=== PATIENT | male | born 1940 | race Caucasian/White ===

== ENCOUNTER 2020-11-20 15:03 | Inpatient (IN) | payer OTHER ==
[~2020-11-20] VITALS: Ht 170.2 cm; Wt 90.7 kg
--- NOTE | ~2020-11-20 | HC ---
[facility] [place] [address] CONSULTATION Name: EMILY DELVALLE Room #: 212-P [facility] IN .R.#: [id number] Admission: 11/20/20 Attend Phys: He Barahona MD Discharge: Date of : 40 Report #: [id number] THIS REPORT FOR: cc: Rosa Mullins Stefany RNP Al-Absi,Kyler Banegas MD ~ DATE OF SERVICE: 11/22/2020 REASON FOR CONSULTATION: Chronic kidney disease. REASON FOR THE PRESENTATION: Chest pain. HISTORY OF PRESENT ILLNESS: This is an 80-year-old with extensive past medical history including and not limited to, coronary artery disease, hypertension, remote history of cardiac stent back in 1996. He presented to the Emergency Room on 09/22 with left-sided chest pain. He had worsening episodes of chest pain over the last couple of weeks. Those were similar to his previous cardiac pain. He was admitted to be further evaluated for his chest pain. Troponins were mildly elevated on arrival. Cardiac catheterization revealed multivessel disease and potential for the patient need for a CABG procedure. Cardiothoracic surgeon was consulted. The patient's creatinine was elevated on his arrival, mandating a Nephrology consultation. Looking back at the patient's medical records, it does look like that the patient has a creatinine as high as 2.0 back to 2009. He denies any prior knowledge of kidney disease. He denies nonsteroidal anti-inflammatory medication usage. No known personal or family history of cystic kidney disease, nephrolithiasis, glomerulonephritis, connective tissue disorders. PAST MEDICAL AND SURGICAL HISTORY: 1. Coronary artery disease. 2. Hyperlipidemia. 3. Hypertension. 4. Status post angioplasty and coronary stent. 5. Left foot surgery. ALLERGIES: PORK CONTAINING PRODUCTS. MEDICATIONS: 1. Vitamin D. 2. Calcium carbonate. 3. Crestor. 4. Lisinopril. 5. Metoprolol. 6. Aspirin. 7. Nitroglycerin. [facility] [address] [place] [address] CONSULTATION Name: EMILY DELVALLE Room #: 212-P [facility] IN [facility].#: [id number] Admission: 11/20/20 Attend Phys: He Barahona MD Discharge: Date of : 40 Report #: [id number]. Ulysses 3 fish oil. FAMILY HISTORY: Significant for hypertension and diabetes mellitus. SOCIAL HISTORY: He denies drug or alcohol abuse. He is independent. REVIEW OF SYSTEMS: GENERAL: No fever or chills. CARDIOVASCULAR: As per the history of present illness. PULMONARY: No cough or hemoptysis. GASTROINTESTINAL: No nausea or vomiting. GENITOURINARY: No frequency, no urgency. MUSCULOSKELETAL: Occasional myalgias and back pain. NEUROLOGICAL: No headache, no dizziness. PHYSICAL EXAMINATION: VITAL SIGNS: Blood pressure 169/85. HEAD AND NECK: No jugular venous distention, no bruit, no thyromegaly. CHEST: Clear to auscultation bilaterally. CARDIOVASCULAR: Regular with no rub detected. ABDOMEN: Soft, nontender with no hepatosplenomegaly. LOWER EXTREMITIES: No edema. LABORATORY DATA: Reviewed. Sodium 142, potassium is 4.4, chloride 110, BUN 36, creatinine 2.2. Troponin is 0.6. IMPRESSION AND PLAN: 1. Chronic kidney disease dating back to 2009. 2. Coronary artery disease. 3. Hypertension. 4. From the renal perspective, the patient's renal function seems to be at his baseline. I will discontinue lisinopril. 5. Ongoing cardiac evaluations and Cardiothoracic Surgery evaluation. 6. Continue to monitor renal function panel. 7. Continue to monitor daily electrolytes, urine output. 8. Avoid nephrotoxins. 9. We will continue to follow during his hospital stay. Thank you for the consultation. By: [id number] Kyler Bryant MD /nt
--- NOTE | ~2020-11-20 | TEE ---
[address] [address] TRANSESOPHAGEAL ECHOCARDIOGRAM Name: EMILY DELVALLE Room #: 212-P [facility] IN M.R.#: [id number] Admission: 11/20/20 Attend Phys: He Barahona MD Discharge: 11/22/20 Date of : 40 Report #: [id number] THIS REPORT FOR: cc: Rosa Mullins Stefany RNP Lammoglia, Francisco J. MD ~ APPROVED REPORT Study performed: 11/21/2020 08:05:04 EXAM: Comprehensive 2D, Doppler, and color-flow Echocardiogram Patient Location: Bedside Room #: 212 Status: routine BSA: 2.02 HR: 88 bpm BP: 148/78 mmHg Rhythm: NSR Other Information Study Quality: Adequate Indications Non STEMI CAD Chest Pain Hypertension/HDD Volumes Left Atrial Volume (Systole) LA ESV Index: 32.00 mL/m2 Left Ventricle The left ventricle is normal size. There is normal LV segmental wall motion. There is normal left ventricular wall thickness. The left ventricular systolic function is normal. The left ventricular ejection fraction is within the normal range. LVEF is 50-55%. The left ventricular diastolic function is abnormal. Right Ventricle The right ventricle is normal size. The right ventricular systolic function is normal. Atria [address] [address] TRANSESOPHAGEAL ECHOCARDIOGRAM Name: EMILY DELVALLE Room #: 212-P [facility] IN M.R.#: [id number] Admission: 11/20/20 Attend Phys: He Barahona MD Discharge: 11/22/20 Date of : 40 Report #: [id number] The left atrium size is normal. The right atrium size is normal. Aortic Valve The aortic valve is normal in structure. Aortic valve is calcified. No aortic regurgitation is present. There is no aortic valvular stenosis. Mitral Valve The mitral valve is normal in structure. Mild mitral regurgitation. No evidence of mitral valve stenosis. Tricuspid Valve The tricuspid valve is normal in structure. There is no tricuspid valve regurgitation noted. Pulmonic Valve The pulmonary valve is normal in structure. There is no pulmonic valvular regurgitation. Great Vessels The aortic root is normal in size. IVC is not well visualized. Pericardium There is no pericardial effusion. <Conclusion> The left ventricle is normal size. LVEF is 50-55%. The aortic valve is normal in structure. Aortic valve is calcified. No aortic regurgitation is present. There is no aortic valvular stenosis. The mitral valve is normal in structure. Mild mitral regurgitation. The tricuspid valve is normal in structure. The pulmonary valve is normal in structure. There is no pericardial effusion. The aortic root is normal in size. By: 0911 0 Almas Rodriguez MD /INF
--- NOTE | 2020-11-20 12:30 | NUR ---
daughter present this am, updated on all cares as provided. remained npo for cardiac cath. tylenol given for r sided discomfort- pt had fall about one week ago prior to hospital admission. report received from director of labor and delivery RN. returned from director of labor and delivery. r groin dressing dry/intact, no bleeding, bruising or hematoma, pedal pulses 1+. daughter remains present in room.
[~2020-11-20 15:03] MED LIST: ASPIRIN PO; ASPIRIN325 PO; ATENOLOL; CALCIUM 500 +1 EAC4 PO; CATAPRES0.2 MG PO; CRESTOR40 MG PO; EFFIENT10 MG PO; FISH OIL 1,001000 M1 PO; HCTZ PO; LISINOPRIL10 MG PO; NITROGLYCERIN0.4 MG SL; NORCO 5-325 TA1 EACH PO; PRINIVIL40 MG PO; TOPROL XL100 MG PO; TOPROL XL50 MG PO; VITAMIN D1000 UNI1 PO; ZOCOR
[2020-11-20 15:09] VITALS: BP 186/119
[2020-11-20 16:21] LABS: ABSOLUTE NEUTROPHILS 6.3 thou/uL (1.4-8.2); BASOPHILS 0.8 % (0.0-2.0); EOSINOPHILS 3.8 % (0.0-3.0); HEMATOCRIT 44.9 % (42.0-52.0); HEMOGLOBIN 15.1 gm/dL (14.0-18.0); LYMPHOCYTES 18.6 % (24.0-44.0); MCH 28.2 pg (26.0-34.0); MCHC 33.6 g/dL (28.0-37.0); MCV 83.9 fL (80.0-100.0); MONOCYTES 5.9 % (1.0-8.0); PLATELET COUNT 282 thou/uL (150-400); POLYS 70.9 % (36.0-66.0); RBC 5.36 mil/uL (4.50-6.00); RDW 14.7 % (10.5-14.5); WBC 8.9 thou/uL (4.0-11.0)
[2020-11-20 16:24] LABS: CALCIUM 8.9 mg/dL (8.5-10.1); CREATININE 2.3 mg/dL (0.7-1.3)
[2020-11-20 16:34] LABS: ALBUMIN 3.6 g/dL (3.4-5.0); DIRECT BILIRUBIN 0.1 mg/dL (<0.1-0.2); TOTAL BILIRUBIN 0.7 mg/dL (0.2-1.0); TOTAL PROTEIN 7.8 g/dL (6.4-8.2)
[2020-11-20 16:39] LABS: TROPONIN-I 0.98 ng/mL (<0.06)
--- NOTE | 2020-11-20 17:38 | NUR ---
PT STATES HE DOSEN'T CONSUME PORK AND SEAFOOD PRODUCTS BUT HAS NO ALLERGIES TO THEM.
[2020-11-20 18:12] LABS: PROTIME 10.8 Seconds (9.3-11.4)
[2020-11-20 18:23] VITALS: BP 152/84
[2020-11-20 19:00] VITALS: BP 158/79
[2020-11-20 19:55] VITALS: BP 159/99
[2020-11-20 22:50] LABS: ANION GAP 12 mmol/L (7-16); BUN 36 mg/dL (7-18); CALCIUM 8.5 mg/dL (8.5-10.1); CHLORIDE 108 mmol/L (98-107); CHOLESTEROL 217 mg/dL (<200); CO2 22 mmol/L (21-32); CREATININE 2.5 mg/dL (0.7-1.3); GLUCOSE 132 mg/dL (74-106); HDL CHOLESTEROL 36 mg/dL (>40); LDL CHOLESTEROL 146 mg/dL (<100); POTASSIUM 3.9 mmol/L (3.5-5.1); SERUM ASSESSMENT Clear; SODIUM 142 mmol/L (136-145); TRIGLYCERIDE 175 mg/dL (<150); VLDL 35 mg/dL (<40)
[2020-11-21] VITALS (13 sets, daily range): BP systolic 145–181; BP diastolic 78–111
--- NOTE | 2020-11-21 06:20 | NUR ---
1939 patient arrived via cart from ER. Caridac monitor placed. Patient awake, alert, oriented. Daughter had followed the nurse up from ER and had to be told that she was not allowed to come on the unit as visiting hours were over. She was very tearful and dramatic but in the end, she did leave. She called 3 times before midnight to check on her father. Reminded her about visiting hours 9 am to 7 pm. Patient was up most of the night, unable to sleep. Heart rate and rhythm stable in the 90's. Blood pressure elevated at midnight check. Call placed to night RETREAD OPERATORAura. Orders received for hydralazine 10 mg. Pressure down, post check. Patient has been NPO since midinight. Consent signed and in chart. Patient up to bedside commode with assist x1 to void. Patient has difficulty with getting around. States he has a "bad" shoulder, knee, and hip from a recent fall. Denies pain. Heparin continues per protocol. See documemtation on interventions for assessment details.
--- NOTE | 2020-11-21 06:55 | EKG ---
[address] [place] [address] ELECTROCARDIOGRAM REPORT Name: MOOKEMILY Room #: 212-P [facility] IN .R.#: [id number] Admission: 11/20/20 Attend Phys: He Barahona MD Discharge: Date of : 40 Report #: [id number] [facility] ED Test Date: 2020-11-20 Test Time: 15:11:46 Pat Name: EMILY DELVALLE Department: Room: [facility] Gender: M Clinical Data Research: GIL : 1940 Requested By: Trina Hampton Order Number: [id number] MD: Michi Chavez Measurements Intervals [place] Rate: 99 P: -17 DE: 176 QRS: -57 QRSD: 111 T: 84 QT: 361 QTc: 464 Interpretive Statements Sinus rhythm Probable left atrial enlargement Left anterior fascicular block Left ventricular hypertrophy Anterior infarct, old Compared to ECG 11/24/2014 07:00:24 Left ventricular hypertrophy now present Sinus tachycardia no longer present Poor R-wave progression no longer present Myocardial infarct finding still present Electronically Signed On 11-21-2020 6:55:43 [employer] PROJECT MANAGER by Michi Chavez [email or web address] <ELECTRONICALLY SIGNED> By: Michi Chavez MD, [facility] 11/21/20 0655 10 10 Michi Chavez MD, [facility] /EPI
[2020-11-21 07:42] LABS: HEMATOCRIT 43.2 % (42.0-52.0); HEMOGLOBIN 14.5 gm/dL (14.0-18.0); MCH 28.2 pg (26.0-34.0); MCHC 33.5 g/dL (28.0-37.0); RBC 5.14 mil/uL (4.50-6.00); WBC 7.9 thou/uL (4.0-11.0)
[2020-11-21 08:00] LABS: CALCIUM 8.6 mg/dL (8.5-10.1); CREATININE 2.3 mg/dL (0.7-1.3); POTASSIUM 4.1 mmol/L (3.5-5.1)
[2020-11-21 08:07] LABS: TROPONIN-I 0.66 ng/mL (<0.06)
--- NOTE | 2020-11-21 09:24 | NUR ---
echo completed. pt states that when blinds were opened the sun was in his eyes for 45 minutes. very irritable, stating he is having r sided shoulder and knee pain. tylenol po given with pain /. daughter present, updated on all cares. distillery laborer enroute for transport to distillery laborer.
--- NOTE | 2020-11-21 09:35 | NUR ---
to laborer cement gun placing per bed with laborer cement gun placing rn.
--- NOTE | 2020-11-21 10:04 | NUR ---
ASSESSMENT: cm reviewed CHART. PT IS OUT OF THE ROOM FOR TEST BUT HIS DAUGHTER ADDIS IS PRESENT. PT WAS ADMITTED DUE TO CHEST PAIN/NSTEMI. PT HAD ELEVATED BLOOD PRESSURE AND WAS ALSO STARTED ON A HEPARIN GTT. PT LIVES IN A HOUSE ALONE. PT HAS ABOUT 1 STEP TO ENTER THE HOME AND HIS NEEDS ARE ON THE MAIN LEVEL EXCEPT FOR LAUNDRY IN THE BASEMENT. DAUGHTER REPORTS THERE IS A FULL FLIGHT WITH HANDRAILS TO THE BASEMENT BUT STATES SHE HAS BEEN DOING HIS LAUNDRY LATELY. PT IS NORMALLY VERY INDEPENDENT WITH ADLS AND AMBULATION BUT DAUGHTER REPORTS HE HAS RECENTLY BEEN USING A CANE. PT HAS NOT HAD HH OR BEEN TO SNF. DAUGHTER REPORTS PT USED TO SEE DR. BAIG FOR CARDIOLOGY BUT REPORTS ONCE HE LEFT THE GROUP HE STOPPED SEEING ANYONE AND TAKING MEDICATIONS. PT DOES NOT CURRENTLY HAVE A PCP BUT DAUGHTER REPORTS SHE TOOK HIM TO SEE HER NURSE PRACTIONER THAT SHE SEES ELZBIETA ROGERS. CM ALSO PROVIDED DAUGHTER WITH [facility] PCP LIST IF NEEDED. CM ALSO INSTRUCTED HER SHE CAN CONTACT PATIENTS INSURANCE TO SEE WHO IS IN NETWORK. PLANS ARE FOR PATIENT TO HAVE CARDIAC CATH. CM WILL CONTINUE TO FOLLOW TO ASSIST NEEDED.
--- NOTE | 2020-11-21 12:30 | NUR ---
returned from chemical laboratory scientist.
--- NOTE | 2020-11-22 03:23 | NUR ---
ASSESSMENT: PT REMAIN ALERT AND ORIENT TIMES THREE. UP TO BSC WITH SBA, GAIT STEADY. DENIES PAIN, SOB AND N/V. SR PER MONITOR. RA, CL/DIMINISHED LUNG SOUNDS. DENY SHOULDER/KNEE PAIN CURRENTLY. DAUGHTER Helio CALLED THIS RN WITH LOTS OF QUESTIONS IN REGARDS TO THE PLAN FOR THIS PT. HELIO WAS VERY EMOTIONAL, CRYING, ANXIOUS AND FEELING GUILTY FOR "DAD" BEING HOSPITALIZED AND HAVING TO MAKE DECISIONS ALONE. LOTS OF REASSURANCE AND ENCOURAGEMENT GIVEN TO HELIO. SUGGESTED THAT SHE TRY AND GET A GOOD NIGHTS REST FOR TONIGHT. PT WAS INFORMED THAT THIS RN HAS SPOKEN WITH HIS DAUGHTER AND HE WAS PLEASED WITH THIS RN BEING SO "KIND" AND UNDERSTANDING OF HIS SITUATION. PT REQUEST THAT HE IS GIVEN THE OPPORTUNITY TO GET SOME SLEEP TONIGHT, SAYING THAT HE DID NOT GET MUCH SLEEP AT ALL LAST NIGHT. RIGHT GROIN SITE INTACT, NO HEMATOMA, OOZING NOR BRUISING NOTED. SLOW PROGRESS FOR DC. WILL CONTINUE TO MONITOR.
[2020-11-22 04:09] LABS: HEMATOCRIT 40.4 % (42.0-52.0); HEMOGLOBIN 13.2 gm/dL (14.0-18.0); MCH 27.6 pg (26.0-34.0); MCHC 32.7 g/dL (28.0-37.0); MCV 84.4 fL (80.0-100.0); RBC 4.79 mil/uL (4.50-6.00); WBC 8.6 thou/uL (4.0-11.0)
[2020-11-22 04:35] VITALS: BP 169/85
[2020-11-22 05:00] LABS: CALCIUM 8.2 mg/dL (8.5-10.1); CREATININE 2.2 mg/dL (0.7-1.3); POTASSIUM 4.4 mmol/L (3.5-5.1)
[2020-11-22 07:20] VITALS: BP 160/100
[2020-11-22 11:20] VITALS: BP 165/113
[2020-11-22 12:27] VITALS: BP 165/113
[2020-11-22] MEDS ORDERED: BAYER CHEWABLE81 MG PO (12:50)
[2020-11-22] MEDS ORDERED: LIPITOR40 MG PO (12:50)
[2020-11-22] MEDS ORDERED: METOPROLOL SUCC25 M1 PO (12:50)
[2020-11-22] MEDS ORDERED: CLOPIDOGREL75 MG PO (12:50)
[2020-11-22 13:17] VITALS: BP 165/113
[2020-11-22 13:26] VITALS: BP 165/113
--- NOTE | 2020-11-22 13:26 | NUR ---
Case discussed with the care team. Pt declined heart surgery or procedure in laborer landscape. No other intervention planned. Dc today with HH for home safety evals and cardio pulmonary assessment. Dtr Ijeoma on her way to pick the pt up and take him home. Hh referral discussed with the pt at bedside and he is agreeable. He has not had HH before and denies having any preference. He is anxious to go home this afternoon and awaiting his dtr's arrival. Dc production control planner faxed referral and orders to [facility] and they can accept. No dme indicated as pt has a cane at home if needed.
--- NOTE | 2020-11-22 13:39 | NUR ---
ASSESSMENT CHARTED. PT ALERT AND ORIENTED WITH FORGETFULNESS. DENIED HAVING CHEST PAIN OR DISCOMFORT. SEEN BY DR. NIETO. ORDERS GIVEN TO DISCHARGE PT TO HOME WITH HH. DISCHARGE INSTRUCTIONS GIVEN TO PT AND THE DAUGHTER. THEY BOTH VERBERLISED UNDERSTANDING. PT LEFT THE FACILITY ACCOMPANIED BY THE DAUGHTER.
--- NOTE | 2020-11-23 11:09 | HC ---
[facility] [place] [address] CONSULTATION Name: EMILY DELVALLE Room #: 212-P [facility] IN .R.#: [id number] Admission: 11/20/20 Attend Phys: He Barahona MD Discharge: 11/22/20 Date of : 40 Report #: [id number] THIS REPORT FOR: cc: Rosa Mullins Stefany RNP Forman, John M. MD ~ DATE OF SERVICE: 11/21/2020 We were asked by Dr. Rodriguez to see the patient. HISTORY OF PRESENT ILLNESS: The patient is an 80-year-old with coronary artery disease. The patient presented to the Emergency Department on 11/20/2000. The patient has a history of chest pain. The [facility]. At that care center, blood pressure was found to be 190/20. EKG was abnormal and the family was referred to the Emergency Department. Fall occurred approximately 9 days before admission and the patient sustained injuries to right knee and right shoulder. The patient also has a history of chest pain at rest, approximately 2 weeks ago that required aspirin and nitro. This happened at rest. There is no history of exertional discomfort. We note the patient is essentially homebound during the COVID crisis. Previous history includes coronary stents in 2014 and 2010. PAST MEDICAL HISTORY: Significant for myocardial infarct in 1996, elevated cholesterol, hypertension, and left foot surgery. MEDICATIONS AT HOME: Vitamin D, Crestor, calcium, Effient, lisinopril, metoprolol, aspirin, nitroglycerin, and omega 3 fatty acids. ALLERGIES: No known drug allergies. Claims to be ALLERGIC TO PORK AND PORCINE CONTAINING PRODUCTS AND SEAFOOD. SOCIAL HISTORY: Positive for cigarette use in the past. The patient lives alone on [address] [place]. REVIEW OF SYSTEMS: CONSTITUTIONAL: Denies fever or chills. EYES: Denies vision change. HEENT: Denies hearing changes, sinus problems, headache. RESPIRATORY: Denies cough, shortness of breath, hemoptysis. CARDIAC: As mentioned, angina at rest. [facility] [address] [place] [address] CONSULTATION Name: EMILY DELVALLE Room #: 212-P [facility] IN [facility].#: [id number] Admission: 11/20/20 Attend Phys: He Barahona MD Discharge: 11/22/20 Date of : 40 Report #: [id number] GASTROINTESTINAL: Denies nausea, vomiting, abdominal pain. GENITOURINARY: Denies burning, frequency, urgency. MUSCULOSKELETAL: Injuries sustained during recent fall. Otherwise, no specific joint or muscle pain. SKIN: Denies rash or infection. NEUROLOGIC: Denies motor or sensory dysfunction. ENDOCRINE: Denies goiter tremor. HEMATOLOGIC: Denies bruisability or bleeding. PHYSICAL EXAMINATION: GENERAL: The patient is lying in bed, initially when I saw the patient, he was somnolent post-angioplasty, but later he was much more awake. VITAL SIGNS: Temperature 36.7, heart rate 87, blood pressure 147/98, respiratory rate 18, pulse ox 97 on room air. HEENT: No scleral icterus. I see no arcus. NECK: No mass. I hear no bruit. CHEST: Clear to auscultation anteriorly. HEART: Rhythm regular, no murmur. ABDOMEN: Protuberant, but soft. EXTREMITIES: No clubbing or cyanosis. Trace edema bilaterally, 2+ popliteal pulses bilaterally. SKIN: I see no rash or infection. NEUROLOGIC: No obvious motor or sensory dysfunction. PSYCHIATRIC: Once awake from the medication, is alert, oriented and appropriate and shows insight into problem. ASSESSMENT: I reviewed the cardiac catheterization today. There is a high-grade LAD lesion. There was also a large diagonal that was stented previously. This has a very mild in-stent stenosis. Circumflex is essentially normal and right coronary has trivial disease considering the patient's age. I have reviewed risks and details of coronary artery bypass surgery and compared and contrasted with angioplasty. The patient is not currently ambulatory and if technically feasible, I would recommend angioplasty and stent placement for the LAD. If this was not feasible and the patient understands the risks involved in surgery would be appropriate. The patient was found to have elevated creatinine and we note that a renal consult has been obtained. I have discussed the case with Dr. Debby Rodriguez and with the family. We remain available for surgery if that is the ultimate decision, but certainly angioplasty would be a reasonable approach if thought to be technically feasible. [address] [address] CONSULTATION Name: MOOKEMILY E Room #: 212-P [facility] IN ..#: [id number] Admission: 11/20/20 Attend Phys: He Barahona MD Discharge: 11/22/20 Date of : 40 Report #: [id number] Thank you for the consult. <ELECTRONICALLY SIGNED> By: Dmitry Griffith MD 11/23/20 1109 1533 1755 Dmitry Griffith MD /nt
--- NOTE | 2020-11-26 14:22 | 2DMMODE ---
[facility] [place] [address] 2 D/M-MODE ECHOCARDIOGRAM Name: EMILY DELVALLE Room #: 212-P [facility] IN ..#: [id number] Admission: 11/20/20 Attend Phys: He Barahona MD Discharge: 11/22/20 Date of : 40 Report #: [id number] THIS REPORT FOR: cc: Rosa Mullins Stefany RNP Lammoglia, Francisco J. MD Lammoglia, Francisco J. MD ~ Sex/Age : M/80Y Height/Weight : 170.2cm/90.7kg Patient Name : EMILY DELVALLE Study Date : 2020-11-21 BSA : 2.02? Requesting Name : ECHO STANDARD W/O CONTRAST Date of : 1940 Request Doctor : DAISY RODRIGUEZ Department : CARD --< Approved Report > Study performed: 11/21/2020 08:05:04 EXAM: Comprehensive 2D, Doppler, and color-flow Echocardiogram Patient Location: Bedside Room #: 212 Status: routine BSA: 2.02 HR: 88 bpm BP: 148/78 mmHg Rhythm: NSR Other Information Study Quality: Adequate Indications Non STEMI CAD Chest Pain Hypertension/HDD Volumes Left Atrial Volume (Systole) LA ESV Index: 32.00 mL/m2 Left Ventricle The left ventricle is normal size. There is normal LV segmental wall motion. There is normal left ventricular wall thickness. The left ventricular systolic [facility] [address] [place] [address] 2 D/M-MODE ECHOCARDIOGRAM Name: EMILY DELVALLE Room #: 212-P [facility] IN ..#: [id number] Admission: 11/20/20 Attend Phys: He Barahona MD Discharge: 11/22/20 Date of : 40 Report #: [id number] function is normal. The left ventricular ejection fraction is within the normal range. LVEF is 50-55%. The left ventricular diastolic function is abnormal. Right Ventricle The right ventricle is normal size. The right ventricular systolic function is normal. Atria The left atrium size is normal. The right atrium size is normal. Aortic Valve The aortic valve is normal in structure. Aortic valve is calcified. No aortic regurgitation is present. There is no aortic valvular stenosis. Mitral Valve The mitral valve is normal in structure. Mild mitral regurgitation. No evidence of mitral valve stenosis. Tricuspid Valve The tricuspid valve is normal in structure. There is no tricuspid valve regurgitation noted. Pulmonic Valve The pulmonary valve is normal in structure. There is no pulmonic valvular regurgitation. Great Vessels The aortic root is normal in size. IVC is not well visualized. Pericardium There is no pericardial effusion. <Conclusion> The left ventricle is normal size. LVEF is 50-55%. The aortic valve is normal in structure. Aortic valve is calcified. No aortic regurgitation is present. There is no aortic valvular stenosis. The mitral valve is normal in structure. Mild mitral regurgitation. The tricuspid valve is normal in structure. The pulmonary valve is normal in structure. There is no pericardial effusion. The aortic root is normal in size. [facility] [address] [place] [address] 2 D/M-MODE ECHOCARDIOGRAM Name: EMILY DELVALLE Room #: 212-P [facility]#: [id number] Admission: 11/20/20 Attend Phys: He Barahona MD Discharge: 11/22/20 Date of : 40 Report #: [id number] Electronically Approved : 11/26/2020 14:19:28 By: [id number] 1421 Daisy Rodriguez MD /RAY
--- NOTE | 2020-11-28 23:40 | CATHLAB ---
[facility] [place] [address] INVASIVE PROCEDURE REPORT Name: EMILY DELVALLE Kristin Room #: 212-P [facility] IN .R.#: [id number] Admission: 11/20/20 Attend Phys: He Barahona MD Discharge: 11/22/20 Date of : 40 Report #: [id number] THIS REPORT FOR: cc: Rosa Mullins Stefany RNP Lammoglia, Francisco J. MD ~ APPROVED REPORT Study performed: 11/21/2020 07:31:28 Patient Details Patient Status: In-Patient Room #: The patient is a 80 year-old male Event Personnel Almas Rodriguez Teacher Of Family And Consumer Science, Elizabeth Burger RN RN, Spring Rodriguez RTR Scrub, Danyell Conrad RTR Monitor Procedures Performed Art Access - R femoral artery* Left Heart Cath w/or w/o Coronaries [id number] [facility] Hemostasis w/ Mynx , 60069 Initial Mod Sed Same Phys/QHP Gr5y 124839 30173 Mod Sed Same Phys/QHP Ea 585006, supervision of conscious sedation Indication Non-STEMI (>12 hrs to = 24 hrs), Chest pain Risk Factors Hypercholesterolemia, Coronary Artery DiseaseHypertension Procedure Narrative The Right Groin^ was infiltrated with 1% Lidocaine subcutaneous anesthesia. A PINNACLE 6FR Sheath #[id number] sheath was inserted into the RFA^. Coronary angiography was performed using coronary diagnostic catheters. The right coronary system was accessed and visualized with a JR4 catheter. The left coronary system was accessed and visualized with a JL4 catheter. The left ventricle was accessed and visualized with a PIGTAIL catheter. Closure device was deployed with a Fr MYNXGRIP 6/7F #[id number]. The patient tolerated the procedure well and there were no complications associated with the procedure. There was no hematoma. Intraoperative Conscious Sedation [address] [address] INVASIVE PROCEDURE REPORT Name: EMILY DELVALLE Room #: 212-P [facility] IN ..#: [id number] Admission: 11/20/20 Attend Phys: He Barahona MD Discharge: 11/22/20 Date of : 40 Report #: [id number] Sedation start time: 11:03 Case end Time: 11:49 Versed 3 mg Fluoro Time: 9.20 minutes Dose: DAP 03140.90 cGycm2 2697 mGy Contrast Type and Amount: Visipaque 165 ml Coronary Angiography The patient's coronary anatomy is right dominant. Diagnostic Cath Left Main moderate caliber vessel of normal origin bifurcates into left anterior descending and left circumflex arteries. there is evidence of mild luminal plaqueing and epicardial calcification. LAD small caliner type II vessel with significant proximal irregularities. diagonal 1 arises early which was previously stented and has mild irregularities. the lad proper then gives rise to septal 1 and continues in the anterior interventricular groove a short distance at which point abrupt bend/tortuousity is present. at this point the lad has a high fgrade 90+% lesion afterwhich the vessel continues to the apex rapidly tapering as it reaches the apex. Diagonal 1 small caliber previously stented vessel appear larger than lad proper. the d1 has luminal irregularities of less than 30% as it courses along the anterolateral wall. Circumflex moderate caliber nondominant artery which gives rise to a small early branch followed by an eccentric lesion that appears to be at least 60% to 70%. beyond this lesion the circumflex gives rise to a bifurcating moderate caliber marginal as it courses posteriorly and terminating in the posterior aspect of the heart as two small caliber vessels. OM1 small insignificant caliber OM2 moderate caliber bifurcating with a moderate superior branch coursing towards the lateral and apical aspects of the heart free of high grade disease. the inferior branch is smaller in diameter with luminal irregularities. OM3 small insignificant caliber Right Coronary moderate caliber dominant vessel of normal origin with moderate plaqueing through its course R PDA small to moderate caliber free of high grade lesions Left Ventriculography Left Ventriculography was not performed. [facility] [address] [address] INVASIVE PROCEDURE REPORT Name: EMILY DELVALLE Room #: 212-P [facility] IN ..#: [id number] Admission: 11/20/20 Attend Phys: He Barahona MD Discharge: 11/22/20 Date of : 40 Report #: [id number] Hemodynamics The aortic pressure is 172/100 mmHg with a mean of 100 mmHg. The left ventricular pressure is 172/19 mmHg with a mean of mmHg. The left ventricular end diastolic pressure is 44 mmHg. Conclusion 1. coronary artery disease severe two vessel consisting of complex high grade proximal lad and at least moderate proximal left circumflex 2. abnormal hemodynamics with elevated lvedp Recommendations CABG in view of smaller caliber calcified long lad with two significant tortousity, risk of pci increased and likelihood of intermission coordinator patency better with reyes svg. will obtain surgical opinion as to likelihood of technical success <ELECTRONICALLY SIGNED> By: Almas Rodriguez MD 11/28/202338 38 38 Almas Rodriguez MD /INF
== END 2020-11-22 13:49 | disposition home health service (06) | DRG 280 ==
LOC: ER 15:03 → EROBS 17:41 → 2N 17:41
PROVIDERS: Emergency Medicine; Internal Medicine; ADMIT Hospitalist; ATTEND Hospitalist
PROC: B211YZZ Fluoroscopy of Multiple Coronary Arteries using Other Contrast (ICD-10-PCS; principal; 2020-11-21)
PROC: 4A023N7 Measurement of Cardiac Sampling and Pressure, Left Heart, Percutaneous Approach (ICD-10-PCS; principal; 2020-11-21)
DX: I21.4 Non-ST elevation (NSTEMI) myocardial infarction (principal); N17.0 Acute kidney failure with tubular necrosis; N18.4 Chronic kidney disease, stage 4 (severe); I16.0 Hypertensive urgency; I25.110 Atherosclerotic heart disease of native coronary artery with unstable angina pectoris; E78.00 Pure hypercholesterolemia, unspecified; M19.90 Unspecified osteoarthritis, unspecified site; E78.5 Hyperlipidemia, unspecified; Z20.822 Contact with and (suspected) exposure to COVID-19; R53.81 Other malaise; M25.551 Pain in right hip; I12.9 Hypertensive chronic kidney disease with stage 1 through stage 4 chronic kidney disease, or unspecified chronic kidney disease; I25.2 Old myocardial infarction; Z88.8 Allergy status to other drugs, medicaments and biological substances; Z91.013 Allergy to seafood; Z87.891 Personal history of nicotine dependence; Z95.5 Presence of coronary angioplasty implant and graft; Z82.49 Family history of ischemic heart disease and other diseases of the circulatory system; Z83.3 Family history of diabetes mellitus; Z79.82 Long term (current) use of aspirin; Z79.899 Other long term (current) drug therapy
CPT/HCPCS: 10081

== ENCOUNTER 2021-02-21 19:14 | Inpatient (IN) | payer OTHER ==
[2021-02-21] VITALS (8 sets, daily range): BP systolic 116–169; BP diastolic 74–104
[~2021-02-21] VITALS: Ht 177.8 cm; Wt 94.1 kg
--- NOTE | ~2021-02-21 | HC ---
[facility] [place] [address] CONSULTATION Name: EMILY DELVALLE Room #: 246-P ADM IN M.R.#: [id number] Admission: 02/21/21 Attend Phys: Ervin Costa MD Discharge: Date of : 40 Report #: [id number] THIS REPORT FOR: cc: Rosa Mullins Stefany RNP Al-Absi, Ahmed I. MD ~ DOC #: [id number] Kyler Bryant MD DATE OF SERVICE: 02/21/2021 REASON FOR CONSULTATION: Elevated creatinine. REASON FOR THE PRESENTATION: Brought by his family members after being found down. HISTORY OF PRESENT ILLNESS: This is obtained from the medical chart, this is a patient who is known to have extensive past medical history including and not limited to, coronary artery disease, hypertension. We evaluated him back in November for chronic kidney disease. His baseline creatinine seems to be around 2.0. He was brought by his daughter after being found down. Duration of the event is not really known. The patient is very confused and not able to provide me with any history. He is maintained on blood pressure medications as I stated. His creatinine when I evaluated him back in November was in the 2 range. The patient's creatinine on arrival to the Emergency Room yesterday was 6.2. His CPK was significantly elevated at 14,962. He has had some electrolyte issues. All of those were addressed with the Emergency Room yesterday. The patient was admitted to further evaluate and I was consulted to manage his acute kidney injury. PAST MEDICAL HISTORY: 1. Coronary artery disease. 2. Hypertension. 3. Chronic kidney disease. 4. Hyperlipidemia. 5. Left foot surgery. SOCIAL HISTORY: He lives alone. No known drug or alcohol abuse as previously reported in the medical records. ALLERGIES: PORK CONTAINING PRODUCTS. REVIEW OF SYSTEMS: Unobtainable given the patient's current mental status. MEDICATIONS: 1. Plavix. 2. Atorvastatin. [address] [address] CONSULTATION Name: MOOKEMILY E Room #: 246-P [facility] IN [facility].#: [id number] Admission: 02/21/21 Attend Phys: Ervin Costa MD Discharge: Date of : 40 Report #: [id number] 3. Metoprolol. 4. Aspirin. PHYSICAL EXAMINATION: GENERAL: He is alert, awake, but disoriented. VITAL SIGNS: Temperature is 37.2, pulse rate is 103, blood pressure is 152/96. NECK: No jugular venous distention. CHEST: No crackles. CARDIOVASCULAR: No rub detected. ABDOMEN: Soft, nontender. EXTREMITIES: Lower extremities, no edema. LABORATORY DATA: White blood cell count from yesterday was 25.7 and down to 20,000; hemoglobin was 19.6. Sodium yesterday was 163, potassium was 4.8, chloride was 123, BUN was 64, creatinine was 6.2. Troponin was 4.4, AST was 354. Labs from today revealed a sodium of 159, potassium of 5.2, BUN of 65, creatinine of 5.5, troponin of 9.4. ASSESSMENT: 1. Acute kidney injury with rhabdomyolysis. 2. Hypernatremia. 3. Metabolic acidosis. 4. Elevated troponins. 5. Elevated liver enzymes. PLAN: 1. The constellation of symptoms are all consistent with rhabdomyolysis. The patient's creatinine, sodium seem to be improving with the current measures. Continue with the D5 quarter normal saline, increase the rate of IV fluid. 2. Continue to monitor daily electrolytes. 3. Continue to monitor urine output. 4. I expect his kidney function to continue to improve and his numbers to get back to his usual baseline of around 2. Kyler Bryant MD AIA/RUSTY By: 0535 1900 Kyler Bryant MD /nt
[~2021-02-21 19:14] MED LIST changes: +BAYER CHEWABLE81 MG PO; +CLOPIDOGREL75 MG PO; +LIPITOR40 MG PO; +METOPROLOL SUCC25 M1 PO
--- NOTE | 2021-02-21 19:19 | NUR ---
DAUGHTER REPORTS SHE CHECKS ON HIM EVERY WEDNESDAY
[2021-02-21 19:37] LABS: HEMOGLOBIN 19.6 gm/dL (14.0-18.0); MCHC 32.3 g/dL (28.0-37.0); MCV 86.7 fL (80.0-100.0); PLATELET COUNT 379 thou/uL (150-400); RDW 16.1 % (10.5-14.5); WBC 25.7 thou/uL (4.0-11.0)
[2021-02-21 19:40] LABS: HEMATOCRIT 60.7 % (42.0-52.0)
[2021-02-21 19:58] LABS: APTT 27.4 Seconds (24.5-32.8); INR 1.1; PROTIME 11.9 Seconds (10.5-12.1)
[2021-02-21 19:58] LABS: URINE BLOOD 3+ (Negative); URINE COLOR YELLOW; URINE GLUCOSE-RANDOM* NEGATIVE (Negative); URINE KETONES TRACE (Negative); URINE LEUKOCYTES-REFLEX NEGATIVE (Negative); URINE NITRITE-REFLEX NEGATIVE (Negative); URINE PROTEIN (DIPSTICK) 3+ (Negative); URINE SPECIFIC GRAVITY 1.025 (1.005-1.035); URINE UROBILINOGEN 0.2 E.U./dl (0.2-1.0)
[2021-02-21 19:59] LABS: URINE CLARITY HAZY
[2021-02-21 20:00] LABS: ICTOTEST (BILI CONFIRMATORY) Negative (Negative); URINE BILIRUBIN NEGATIVE (Negative)
[2021-02-21 20:12] LABS: SQUAMOUS None Seen /LPF (0-3); URINE WBC-REFLEX 0-5 Rare /HPF (0-5)
[2021-02-21 20:13] LABS: BACTERIA-REFLEX >30 Many /HPF (None Seen); URINE RBC 3-10 Few /HPF (NONE SEEN)
[2021-02-21 20:14] LABS: AMORPHOUS URATES Moderate /LPF (None Seen); FINE GRANULAR CASTS 0-3 Few /LPF (None Seen); HYALINE CASTS 0-3 Few /LPF (None Seen)
[2021-02-21 20:14] LABS: ALBUMIN 3.9 g/dL (3.4-5.0); CALCIUM 11.4 mg/dL (8.5-10.1); CREATININE 6.2 mg/dL (0.7-1.3); POTASSIUM 4.8 mmol/L (3.5-5.1); TOTAL BILIRUBIN 1.5 mg/dL (0.2-1.0); TOTAL PROTEIN 9.2 g/dL (6.4-8.2)
[2021-02-21 20:17] LABS: ABSOLUTE NEUTROPHILS 21.8 thou/uL (1.4-8.2)
[2021-02-21 20:18] LABS: ANISOCYTOSIS 1+
[2021-02-21 20:19] LABS: POLYCHROMASIA 1+
[2021-02-21 20:20] LABS: TROPONIN-I 4.42 ng/mL (<0.06)
--- NOTE | 2021-02-21 20:52 | NUR ---
FAMILY, 3 DAUGHTERS UPDATED ON PATIENT BY ROADWAY DESIGNER, ANSWERED QUESTIONS, LABS CONCERNS, RADIOLOGY FILMS, STUDIES ORDERED, CONCERNS FOR SEPSIS HEART, AND KIDNEY FUNCTIONS AND TREATMENT PLAN, QUESTIONS FROM ALL 3 DAUGHTERS ANSWERED
--- NOTE | 2021-02-21 21:30 | NUR ---
DAUGHTERS AT BEDSIDE WHILE THIS NURSE AND IZABELLA RN IN ROOM WITH PATIENT. GONZALO MANCINI INFORMED THIS WALLCOVERING HANGER THAT PATIENT "CANNOT LIE DOWN FLAT BECAUSE HE IS UNCOMFORTABLE LYING FLAT." I EDUCATED GONZALO MANCINI THAT THE PATIENT NEEDS TO REMAIN FLAT WITH C-COLLAR ON UNTIL CT COMES BACK NEGATIVE IN ORDER TO PROTECT HIS SPINE IN CASE OF INJURY FROM FALL. GONZALO MANCINI PROCEED TO ATTEMPT TO REMOVE C-COLLAR AND I AGAIN INFORMED ADDIS THAT THIS C-COLLAR WILL REMAIN ON UNTIL THIS ER STAFF REMOVES IT DUE TO PATIENTS CRITICAL CONDITION. GONZALO MANCINI CONTINUED TO IMPEDE ON LETTING NURSING STAFF PROVIDE PATIENT CARE INCLUDING ADMINISTERING FLUIDS, ADMINISTERING ANTIBIOTICS, CLEANING PATIENTS WOUNDS, AND ATTEMPTED TO RUB PATIENTS RAW, BURNT SKIN AFTER I TOLD HER THIS COULD COMPROMISE THE INTEGRITY OF THE SKIN. I INFORMED CHARGE NURSE AND JAMES BUCHANAN ABOUT THESE OCCURENCES.
[2021-02-22] VITALS (30 sets, daily range): BP systolic 119–177; BP diastolic 65–106
--- NOTE | 2021-02-22 00:51 | NUR ---
PT ARRIVED TO ROOM 246 ON 02/21 AT APPROX 2230. PATIENT TRANSFERED TO ICU BED WITH MAX ASSIST. PATIENT PALCED ON CR/SAT MONITOR. NO BELONGINGS PRESENT. HAND AND AC IVS PATENT. SEE MAR FOR INTERVENTIONS. PATIENT IS ALERT TO SELF AND PLACE. PATIENT IS VERY HARD OF HEARING. PATIENT IS FORGETFULL WITH MILD APHASIA. PATIENT IS MAINTAINING ON RA, TACHYCARDIC, AND HYPERTENSIVE. WOUNDS NOTED AND PHOTOGRAPHED. RHODA OROZCO TO BEDSIDE. MEDCATION ORDERED FOR HTN. SEE MAR FOR INTERVENTIONS.
[2021-02-22 04:02] LABS: HEMATOCRIT 51.5 % (42.0-52.0); MCH 28.5 pg (26.0-34.0); MCHC 32.9 g/dL (28.0-37.0); MCV 86.8 fL (80.0-100.0); RBC 5.93 mil/uL (4.50-6.00); RDW 16.3 % (10.5-14.5); WBC 20.9 thou/uL (4.0-11.0)
[2021-02-22 04:09] LABS: HEMOGLOBIN 16.9 gm/dL (14.0-18.0)
[2021-02-22 04:34] LABS: CREATININE 5.5 mg/dL (0.7-1.3); MAGNESIUM 2.6 mg/dL (1.8-2.4); POTASSIUM 5.2 mmol/L (3.5-5.1)
[2021-02-22 04:36] LABS: CALCIUM 8.7 mg/dL (8.5-10.1)
[2021-02-22 04:37] LABS: TROPONIN-I 9.41 ng/mL (<0.06)
[2021-02-22 06:54] LABS: ALBUMIN 2.8 g/dL (3.4-5.0); CALCIUM 8.6 mg/dL (8.5-10.1); POTASSIUM 4.8 mmol/L (3.5-5.1); TOTAL BILIRUBIN 1.3 mg/dL (0.2-1.0); TOTAL PROTEIN 6.9 g/dL (6.4-8.2)
--- NOTE | 2021-02-22 16:01 | NUR ---
PATIENT PROGRESSING IN PLAN OF CARE. FAMILY AT PATIENT BEDSIDE ALL DAY. PATIENT REMAINS ON RA. DIET INITIATED AFTER SPEECH EVALUATION. PATIENT RESTING THROUGHOUT THE DAY. MENTAL STATUS CONTINUES TO BE ALTERED. PATIENT PLEASANT, CALM, COOPERATIVE.
--- NOTE | 2021-02-22 20:06 | NUR ---
spoke with dgt Juliann for several minutes about pt status. daughter very concerned about mental status, telling this rn that pt cannot say if he has pain or is hungry, cold, needs the bathroom, or thirsty. this rn educated dgt that pt is slowly improving and while perhaps unable to give specifics or find right words, has been communicating appropriately and has water at bedside that he has been able to drink on his own. this rn reassured that pt will be well taken care of and monitored.
[2021-02-23] VITALS (26 sets, daily range): BP systolic 75–157; BP diastolic 46–94
[2021-02-23 04:27] LABS: ALBUMIN 2.1 g/dL (3.4-5.0); CALCIUM 7.2 mg/dL (8.5-10.1); CREATININE 6.8 mg/dL (0.7-1.3); PHOSPHORUS 4.7 mg/dL (2.6-4.7); POTASSIUM 4.3 mmol/L (3.5-5.1)
--- NOTE | 2021-02-23 05:29 | NUR ---
PT ORIENTED TO SELF AND PLACE, KNOWS PRESIDENT BUT CANNOT STATE MONTH OR YEAR. RESTING QUIETLY OFF AND ON THROUGHOUT SHIFT. VERY PLEASANT, CONFUSED, DIFFICULTY FINDING WORDS TO COMMUNICATE. IMPROVED URINE OUTPUT. SLOWLY PROGRESSING TOWARD GOALS
--- NOTE | 2021-02-23 13:44 | EKG ---
[address] [address] ELECTROCARDIOGRAM REPORT Name: EMILY DELVALLE Room #: 246- ADM IN M.R.#: [id number] Admission: 02/21/21 Attend Phys: Ervin Costa MD Discharge: Date of : 40 Report #: [id number] [facility] Test Date: 2021-02-22 Test Time: 04:56:56 Pat Name: EMILY DELVALLE Department: Room: 246 P Gender: M Fpga Engineer: Alvin IVEY : 1940 Requested By: Ervin Costa Order Number: [id number] MD: Almas Rodriguez Measurements Intervals [place] Rate: 102 P: -17 [place]: 150 QRS: -62 QRSD: 101 T: 116 QT: 368 QTc: 480 Interpretive Statements Sinus tachycardia Anterior infarct, old Left axis deviation Possible left anterior fascicular block Compared to ECG 02/21/2021 19:21:50 No significant changes Electronically Signed On 02-23-2021 13:44:09 CDT by Almas Rodriguez [email or web address] <ELECTRONICALLY SIGNED> By: Almas Rodriguez MD 02/23/21 1344 0456 0456 Almas Rodriguez MD /EPI
--- NOTE | 2021-02-23 18:34 | NUR ---
PATIENT PROGRESSING IN PLAN OF CARE. ADEQUATE URINE OUTPUT. RA. FENTANYL GIVEN FOR PAIN X2. FAMILY AT BEDSIDE THE WHOLE DAY.
[2021-02-24] VITALS (24 sets, daily range): BP systolic 74–151; BP diastolic 37–76
[2021-02-24 05:26] LABS: CALCIUM 7.1 mg/dL (8.5-10.1); CREATININE 7.3 mg/dL (0.7-1.3); POTASSIUM 4.4 mmol/L (3.5-5.1)
--- NOTE | 2021-02-24 06:00 | NUR ---
PT AWAKE AND ALERT ORINETED X 3 COOPERATIVE. O2 SAT 99 % ON ROOM AIR MULTIPLE WOUNDS SILVADINE CREAM TO AREAS. BATHED. 1800 CC UO THIS SHIFT. FENTANYL X 2 TONIGHT. PT DENIES PAIN AT PRESENT. PROGRESSING TOWARD GOALS
--- NOTE | 2021-02-24 07:20 | EKG ---
[address] [employer] [place] [address] ELECTROCARDIOGRAM REPORT Name: EMILY DELVALLE Room #: 246-P ADM IN M.R.#: [id number] Admission: 02/21/21 Attend Phys: Ervin Costa MD Discharge: Date of : 40 Report #: [id number] [facility] ED Test Date: 2021-02-21 Test Time: 19:21:50 Pat Name: EMILY DELVALLE Department: Room: [facility] Gender: M Obstetrician And Gynaecologist: unknown : 1940 Requested By: Dyana Hopkins Order Number: [id number] MD: Michi Chavez Measurements Intervals [place] Rate: 110 P: [place]: QRS: -66 QRSD: 104 T: 96 QT: 339 QTc: 459 Interpretive Statements Atrial Sinus tach Probable RV involvement, suggest recording right precordial leads Compared to ECG 11/20/2020 15:11:46 Left ventricular hypertrophy no longer present Electronically Signed On 02-24-2021 7:20:12 CDT by Michi Chavez [email or web address] <ELECTRONICALLY SIGNED> By: Michi Chavez MD, [facility] 02/24/21719 20 20 Michi Chavez MD, [facility] /EPI
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
[2021-02-24 08:01] LABS: ABSOLUTE NEUTROPHILS 9.8 thou/uL (1.4-8.2); BASOPHILS 0.4 % (0.0-2.0); EOSINOPHILS 0.4 % (0.0-3.0); HEMATOCRIT 38.5 % (42.0-52.0); LYMPHOCYTES 10.6 % (24.0-44.0); MCH 27.8 pg (26.0-34.0); MCHC 32.5 g/dL (28.0-37.0); MCV 85.6 fL (80.0-100.0); MONOCYTES 6.8 % (1.0-8.0); PLATELET COUNT 148 thou/uL (150-400); POLYS 81.8 % (36.0-66.0); RDW 15.8 % (10.5-14.5); WBC 11.9 thou/uL (4.0-11.0)
[2021-02-24 08:02] LABS: HEMOGLOBIN 12.5 gm/dL (14.0-18.0)
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
--- NOTE | 2021-02-24 11:15 | NUR ---
DAUGHTER, YARELI, IS CURRENTLY IN THE ROOM VISITING THE PATIENT AND HAS TALKED WITH ID DOCTOR, WOUND CARE NURSE, AND HOSPITALIST OF THE WRITING OF THIS NOTE.
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
[2021-02-25] VITALS (24 sets, daily range): BP systolic 117–161; BP diastolic 44–82
[2021-02-25 03:34] LABS: ALBUMIN 1.9 g/dL (3.4-5.0); CALCIUM 7.3 mg/dL (8.5-10.1); CREATININE 7.6 mg/dL (0.7-1.3); PHOSPHORUS 5.4 mg/dL (2.5-4.9); POTASSIUM 4.4 mmol/L (3.5-5.1)
--- NOTE | 2021-02-25 06:00 | NUR ---
VSS SLEPT MOST OF NIGHT. PT CURSES WHEN BEING TURNED. BATHED ALL DRESSINGS CHANGED. GOOD URINARY OUTPUT. SLOWLY PROGRESSING TOWARD GOALS FENTYANYL PRN WILL CONT TO MONITOR
--- NOTE | 2021-02-25 17:24 | NUR ---
ASSUMED CARE AT 0700. PATIENT SLOWLY PROGRESSING TOWARDS THE PLAN OF CARE. MORE ALERT AND ORIENTED TODAY THAN YESTERDAY. DAUGHTERHUMBERTO, MET WITH ALL DOCTORS CONSULTED IN THE ROOM. DAUGHTER, ASHLEY, ARRIVED AT 1700 AND VISITED THE PATIENT WELL.
[2021-02-26] VITALS (13 sets, daily range): BP systolic 127–194; BP diastolic 49–86
[2021-02-26 05:48] LABS: ALBUMIN 1.8 g/dL (3.4-5.0); CALCIUM 7.7 mg/dL (8.5-10.1); CREATININE 7.5 mg/dL (0.7-1.3); PHOSPHORUS 6.4 mg/dL (2.5-4.9); POTASSIUM 4.3 mmol/L (3.5-5.1)
--- NOTE | 2021-02-26 06:10 | NUR ---
PATIENT IS PROGRESSING TOWARDS GOALS. PATIENT IS A&OX4 AND ABLE TO EAT AND DRINK WITH MINIMAL ASSISTANCE. WOUND CARE COMPLETED, SEE ASSESMENT FOR FURTHER DETAILS. ADEQUATE UOP. BMX2 THIS SHIFT. PAIN MEDS REQUESTED BY PATIENT X2 AND GIVEN BY THIS RN PER ORDER. DAUGHTER ASHLEY CALLED X4 FOR POC UPDATES THROUGHOUT THE NIGHT. DAUGHTER EXPRESSED CONCERN REGARDING WORSENING WOUNDS, REPOSITIONING, DRY FOOD, AND PATIENT BEING UNABLE TO DRINK INDEPENDENTLY. RN PROVIDED EDUCATION TO ASHLEY REGARDING WOUND CARE, Q2H REPOSITIONING AND CLRT, FREQUENT FOOD AND DRINK OPPORTUNITIES WITH ASSISTANCE, AND PAIN MGMT.
[2021-02-27] VITALS (7 sets, daily range): BP systolic 135–193; BP diastolic 58–96
--- NOTE | 2021-02-27 03:43 | NUR ---
223 CALLED DAUGHTER BACK LEFT MSG ON VOICEMAIL. 2237 DAUGHTER RETURNED CALLED, BRIEF OVERVIEW OF PATIENT STATUS,SPOKE WITH HER FOR 5MINUTES. 0345 PATIENT RESTING WELL. PATIENT IS ORIENTED X4 FORGETFUL WITH SOME TOPICS. PAIN MEDICATION PROVIDES RELIEF PATIENT CONTINUES TO REST COMFORTABLY. PT. DENIES SOA. PATIENT TOLERATED MULTIPLE DRESSING CHANGES LAST PM AND WILL CONTINUE TO WORK ON POC. PT REPOSITIONED Q2 FOR COMFORT AND SKIN CARE.
[2021-02-27 06:08] LABS: ALBUMIN 1.9 g/dL (3.4-5.0); CREATININE 7.7 mg/dL (0.7-1.3); PHOSPHORUS 7.3 mg/dL (2.5-4.9); POTASSIUM 4.4 mmol/L (3.5-5.1)
--- NOTE | 2021-02-27 18:49 | HC ---
[facility] [place] [address] CONSULTATION Name: EMILY DELVALLE Room #: 207-P [facility] IN M.R.#: [id number] Admission: 02/21/21 Attend Phys: Stiven Becerra MD Discharge: Date of : 40 Report #: [id number] THIS REPORT FOR: cc: Rosa Mullins Stefany RNP Althoff, Jeffrey R. MD ~ DOC #: [id number] Santos Rodríguez MD DATE OF SERVICE: 02/24/2021 CHIEF COMPLAINT: Multiple pressure ulcerations following fall with prolonged downtime outdoors. HISTORY OF PRESENT ILLNESS: The patient is an 80-year-old male patient who is a very poor historian. Apparently, he was last seen last several days ago early in the morning. She found him the following late afternoon, lying on the ground outdoors. He had apparently fallen. It is unclear as to whether he was on the ground for the entire 36 hours or a shorter period of time. He was there long enough to have sustained pressure ulcerations to his right side and sunburn to his left side. The patient was noted to have a significant acute kidney injury and rhabdomyolysis. I have been asked to see him with regard to wound care. PAST MEDICAL HISTORY: Positive for history of coronary artery disease, status post PCI, hypertension, hyperlipidemia, chronic kidney disease, degenerative joint disease, history of noted medical noncompliance. SOCIAL HISTORY: The patient lives at home alone and is a former smoker. FAMILY HISTORY: Unknown. ALLERGIES: No known drug allergies. MEDICATIONS: Currently include aspirin, atorvastatin, clopidogrel, metoprolol, nitroglycerin. REVIEW OF SYSTEMS: Very limited due to the patient's confusion, he does recount the events of the fall that apparently occurred a year ago, but does not have recollection or the ability to discuss current events. He complains of pain related to the pressure ulcers. Other systems are either unobtainable or already mentioned in the history of present illness or not otherwise further distinguishable in the history of present illness. PHYSICAL EXAMINATION: VITAL SIGNS: The patient's vital signs at this time include blood pressure 115/50, pulse 75, respiratory rate 18, temperature 97.7. [address] [address] CONSULTATION Name: GERARDO DELVALLELATIA Foster Room #: 207-P [facility] IN ..#: [id number] Admission: 02/21/21 Attend Phys: Stiven Becerra MD Discharge: Date of : 40 Report #: [id number] GENERAL: This is a chronically ill-appearing male patient appears to be in moderate discomfort. SKIN: Examination of the head demonstrates what appears to be deep tissue injury to the right parietal occipital portion of the scalp. It is minimally tender and no open ulceration noted at this time. He has what appears to be a stage 3 pressure ulceration to the right scapula. He has a stage 3 pressure ulceration to his mid back and stage 3 pressure ulceration to his right inner thigh. He has stage 2 pressure ulceration and MASD to his buttocks bilaterally. He does have significant sunburn to his left arm and his left hip and groin. Apparently, he scooted on the ground causing his pants to be displaced causing him to have sun exposure in his hip and groin area. He also appears to have a stage 3 pressure ulcerations to the right lateral foot. NEUROLOGIC: The patient is moving symmetrically. He is disoriented. LABORATORY STUDIES: Currently include sodium 140, potassium 4.4, chloride 108, CO2 of 16, BUN 76, creatinine 7.3, glucose of 99. Albumin is 2.0. INR is 1.1. White blood cell count 11.9 with a hemoglobin of 12.5, hematocrit of 38.5. CLINICAL TREATMENT PLAN: 1. Deep tissue injury to the right parietal occipital scalp. 2. Stage 2 pressure ulcer of the right scapula. 3. Stage 3 pressure ulceration to the mid back. 4. Stage 3 pressure ulceration to the right inner thigh. 5. Stage 2 pressure ulceration MASD to the buttocks bilaterally. 6. Sunburn to the left hip, groin, and left arm with multiple blisters second-degree burn. 7. Stage 3 pressure ulceration to the right lateral foot. 8. Bacteremia with enterococcus. 9. Acute kidney injury and rhabdomyolysis following fall and prolonged downtime outdoors. 10. Severe protein-calorie malnutrition with albumin 2.0. RECOMMENDATION: At this point in time to the areas that are open including the scapula, mid back, right inner thigh, left hip, groin, and left arm will recommend Silvadene, morphine compound, Xeroform, ABD and either Kerlix or tape. We will recommend Betadine paint to the right lateral foot into the scalp DTI. He will need PRAFO boots while in bed. He will need low air loss mattress with q.2 hour turning and positioning. The patient will need aggressive nutritional support to maximize wound healing and to assist with his overall recovery. I appreciate being asked to see him in consultation. MD KIANNA Cruz/ALL [address] [place] [address] CONSULTATION Name: EMILY DELVALLE Room #: 207-P ADM IN M.R.#: [id number] Admission: 02/21/21 Attend Phys: Stiven Becerra MD Discharge: Date of : 40 Report #: [id number] <ELECTRONICALLY SIGNED> By: Santos Rodríguez MD 02/27/21 1849 1210 01 Santos Rodríguez MD /nt
[2021-02-28 04:45] VITALS: BP 138/68
[2021-02-28 06:01] LABS: CALCIUM 8.3 mg/dL (8.5-10.1); CREATININE 7.5 mg/dL (0.7-1.3); PHOSPHORUS 7.1 mg/dL (2.5-4.9); POTASSIUM 4.9 mmol/L (3.5-5.1)
[2021-02-28 07:40] VITALS: BP 141/72
--- NOTE | 2021-02-28 12:54 | NUR ---
Case discussed with the care team. No weekend dc anticipated. Pt is working with therapy and needs continued montioring of kidney function and wound care. [facility] is evaluating and will reassess Wednesday. They will need insurance auth for acute rehab. Pt declined CABG. Will follow.
[2021-02-28 16:00] VITALS: BP 140/67
--- NOTE | 2021-02-28 18:35 | NUR ---
NO CHANGES IN PATIENT ASSESSMENTS, PATIENT CONTINUES TO BE A/O X1-2 WITH FORGETFULLNESS. WOUND DRESSING CHANGE COMPLETED THIS SHIFT. FAMILY AT BEDSIDE THROUGHOUT SHIFT. ONE DAUGHTER REPORTS HER SISTER "IS VERY MANIPULATIVE AND HAS BEEN BANNED FROM THE HOSPITAL BEFORE".
[2021-02-28 20:05] VITALS: BP 177/77
--- NOTE | 2021-03-01 04:16 | NUR ---
ASSUMED CARE FROM DAY SHIFT , DAUGHTER AT BEDSIDE , PT ASSESS AND POC DISCUSSED . DRESSING CHANGED ORERED, PT TOLERATED WELL. INCONITENT OF STOOL, PT TURNED TO SIDE, AND WILL CONITUE TO TURN EVERY 2 HOURS. EMERGENCY SPILL RESPONSE TECHNICIAN SHOWS NSR.
[2021-03-01 04:45] VITALS: BP 157/71
[2021-03-01 05:12] LABS: ALBUMIN 2.1 g/dL (3.4-5.0); CALCIUM 7.8 mg/dL (8.5-10.1); CREATININE 7.3 mg/dL (0.7-1.3); PHOSPHORUS 6.8 mg/dL (2.5-4.9); POTASSIUM 4.7 mmol/L (3.5-5.1)
[2021-03-01 07:35] VITALS: BP 152/54
--- NOTE | 2021-03-01 09:59 | NUR ---
REPORT GIVEN TO MARQUITA PHAM, WHO WILL BE ASSUMING CARE.
[2021-03-01 11:40] VITALS: BP 163/61
[2021-03-01 15:45] VITALS: BP 137/50
--- NOTE | 2021-03-01 18:19 | NUR ---
PATIENT ALERT ORIENTED TO SELF. WOUND DRESSING CHANGED AND HE TOLERAED WELL. FAMILY IN ROOM THROUGH THE DAY. HE HAD TYLENOL EARLIER FOR PAIN. NOTED OT HAVE DIARRHEA AND PRN IMMODIUM ORDERED. WILL CONT WITH PLAN OF CARE.
[2021-03-01 19:36] VITALS: BP 130/99
[2021-03-02 04:15] VITALS: BP 160/91
--- NOTE | 2021-03-02 07:18 | NUR ---
PROGRESS PT ALERT, ORIENTED TO SELF, FAMILY AND KNOWS HE IS IN HOSPITAL BUT UNABLE TO GIVE DATE TIME ETC. DTR AT BEDSIDE MOST OF EVENING. WOUND CARE DONE ORDERED, IV ANTIBIOTICS ADMINISTERED TYELNOL GIVEN BEFORE DRESSING CHANGES WITH SCHEDULED MEDS, CRUSHED IN APPLESAUCE TAKEN WITHOUT DIFFICULTY. PT TOLERATING NECTAR THICK LIQUIDS. VSS REPOSITIONED Q2 TO 3 HOURS PT IS RESISTANT BUT TALKED HIM THROUGH MOVING. HE DOES HELP TURN AND HOLDS HIMSELF IN PLACE IF ASKED. RIGHT KNEE IS UNABLE TO BE STRAIGHTENED OUT AND NEEDS BRACING FOR COMFORT PILLOW UNDERNEATH. IV TO LAURENT INFUSING SODIUM BICARB AT 80 ML'S/HR. SL TO RF FLUSHED WITHOUT DIFFICULTY. COMPLETE BED BATH GIVEN WITH SKIN SURROUND ING WOUNDS MOISTURIZED AND DRY FLAKY SKIN WASHED OFF. SKIN UNDER EYES HARD AND TENDER CLEANSED AND BARRIER CREAM APPLIED TO SOFTEN. FARRELL CATH INTACT DRAINING LARGE AMOUNT OF CLEAR YELLOW URINE.
[2021-03-02 08:00] VITALS: BP 140/82
[2021-03-02 09:37] LABS: ALBUMIN 2.2 g/dL (3.4-5.0); CALCIUM 7.9 mg/dL (8.5-10.1); PHOSPHORUS 5.5 mg/dL (2.5-4.9); POTASSIUM 4.5 mmol/L (3.5-5.1)
[2021-03-02 11:40] VITALS: BP 129/56
[2021-03-02 16:10] VITALS: BP 162/90
--- NOTE | 2021-03-02 16:29 | NUR ---
PT ALERT AND ORIENTED TIMES THREE WITH BLUNT AFFECT. VSS, SR ON TELE, BUD TO DD. IVF INFUSING PER ORDER. PT C/O PAIN BUT STATES HE DIDNT WANT ANY PAIN MEDICATIONS AT THIS TIME. PT TOLERATES MEDS. ONLY EATS SMALL PORTIONS OF MEALS. DRESSING CHANGED THIS MORNING. PT DAUGHTERS AT BEDSIDE. WILL CONTINUE TO MONITOR.
[2021-03-02 19:53] VITALS: BP 151/95
[2021-03-03] VITALS (7 sets, daily range): BP systolic 145–188; BP diastolic 78–98
[2021-03-03 09:23] LABS: HEMOGLOBIN 12.1 gm/dL (14.0-18.0); MCHC 32.7 g/dL (28.0-37.0); MCV 85.7 fL (80.0-100.0); RBC 4.32 mil/uL (4.50-6.00); RDW 15.1 % (10.5-14.5); WBC 8.9 thou/uL (4.0-11.0)
[2021-03-03 09:37] LABS: ALBUMIN 2.2 g/dL (3.4-5.0); CALCIUM 8.7 mg/dL (8.5-10.1); CREATININE 6.5 mg/dL (0.7-1.3); PHOSPHORUS 5.3 mg/dL (2.6-4.7); POTASSIUM 4.7 mmol/L (3.5-5.1)
[2021-03-03 09:39] LABS: ALBUMIN 2.2 g/dL (3.4-5.0); DIRECT BILIRUBIN 0.1 mg/dL (<0.1-0.2); TOTAL BILIRUBIN 0.4 mg/dL (0.2-1.0); TOTAL PROTEIN 6.5 g/dL (6.4-8.2)
--- NOTE | 2021-03-03 15:43 | NUR ---
REHAB TEAM FOLLOWING PATIENT TO SEE IF PATIENT MIGHT BE APPROPRIATE FOR ACUTE REHAB. PATIENT DID PARTICIATE FOR 40 MINUTES WITH PT THIS DATE. OT UNABLE TO SEE PATIENT THIS DATE. D/C SPLIT LEATHER MOSSER TO SEE AVAILABLE FAMILY ASSISTANCE FOR PATIENT UPON PATIENT'S RETURN TO HOME SETTING. PATIENT WILL NEED INSURANCE AUTHORIZATION IF ACCEPTED FOR 5[facility]. WILL CONTINUE TO FOLLOW.
--- NOTE | 2021-03-03 16:54 | NUR ---
met with patient and dtr at bedside. Reviewed dc planning processs. [facility] is following and has not submitted for auth at this time. Gave dtr [employer] list to review. Dtr reports her father is very confused. TECHNICAL INFORMATION SPECIALIST she reports very independent with adls and self care. She reports he would read often. He is confused when staff gives care. Forgetfull of why in hospital. She reports odd behaviors as well. He would call her 16 times on phone. He turns remote on/off consistantly. requested community living instructor meet with dtr to discuss care concerns. dtr plans to review [employer] list with her sisters.
--- NOTE | 2021-03-03 18:48 | NUR ---
PT CARE ASSUMED AT 1100. ASSESSMENTS CHARTED. MEDICATIONS CHARTED. RFA IV. SINUS RHYTHM. FARRELL. MULTIPLE WOUNDS; RT HIP, RT THIGH, RT FOOT, SACRUM, LT ELBOW, RT SCAPULA, BACK THORACIC. PT IS EXTREMELY CONFUSED. FAMILY IS VERY INVOLVED WITH CARE.
[2021-03-04 04:00] VITALS: BP 150/75
[2021-03-04 06:35] LABS: CALCIUM 8.1 mg/dL (8.5-10.1); CREATININE 6.1 mg/dL (0.7-1.3); PHOSPHORUS 5.4 mg/dL (2.5-4.9); POTASSIUM 5.4 mmol/L (3.5-5.1)
--- NOTE | 2021-03-04 07:36 | NUR ---
ASSUME CARE 1900. PT/VITALS STABLE. INTERMITTENT GENERALIZED PAIN INDICATED. POOR ENDURANCE TO ACTIVITY. WOULD BENEFIT FROM PT/OT. ASSESSMENT ASA CHARTED. PROGRESSING SLOWLY TOWARDS POC. WOUND DRESSING CHANGES DONE. ALL WOUNDDS APPEAR TO BE HEALING WITH NO SIGNS OF INFECTION NOTED. PLAN IS TO CONTINUE TO MONITOR WOUND HEALING AND MONITOR FOR INFECTION. WILL CONTINUE TO FOLLOW WITH POC
[2021-03-04 09:18] VITALS: BP 146/74
--- NOTE | 2021-03-04 10:24 | NUR ---
ASSUMED PT CARE AT 0700. 0815, ASSESSMENT PERFORMED CHARTED, PT IN BED WITH FAMILY AT BEDSIDE. PTS FAMILY REQUEST PT BE CHECKED FOR INCONTINENT BOWEL, NO BOWEL MOVEMENT PRESENT. VSS. WILL CONTINUE TO MONITOR AND FOLLOW POC. WOUND CARE WILL BE PERFORMED THIS AFTERNOON.
--- NOTE | 2021-03-04 11:35 | NUR ---
RECEIVED THE PATIENT AT 1030 FROM RADIOLOGY AFTER TRANSFERRING FROM THE ICU.PT USED COMMODE AFTER ENTERING THE ROOM. PT IS A X2 ASSIST WITH MODERATE COACHING. PT STATES SHE WANTED TO GO TO THE BED THEN 10 MIN LATER WANTED TO GO TO THE CHAIR. PT REPEATEDLY YELLS OUT. VSS. ASSESSMENT UNCHANGED FROM REPORTED ASSESSMENT. WILL CONTINUE TO MONITOR AND FOLLOW POC.
--- NOTE | 2021-03-04 11:50 | NUR ---
PT IN BED, DAUGHTER HUMBERTO AT BEDSIDE. PT AND PTS FAMILY EDUCATED ON PLAN. PT FREE OF INCONTINENT OF BOWEL AT THIS TIME. PTS FAMILY EXPRESSES NO FURTHER CONCERNS AT THIS TIME. VSS. WILL CONTINUE TO MONITOR AND FOLLOW POC.
[2021-03-04 12:23] VITALS: BP 140/68
--- NOTE | 2021-03-04 14:58 | NUR ---
PTS DAUGHTER PRESENTED IN THE HALLWAY, REQUESTING A PATIENT ADVOCATE FOR HER SISTER ASHLEY TO ASK FOR PERMISSION TO STAY THE NIGHT. PRUDENCIO, 2N DIRECTOR NOTIFIED. PT HAS NOT REQUESTED IT HIMSELF.
--- NOTE | 2021-03-04 14:59 | NUR ---
PHYSICIAN, CARE TEAM AND FAMILY WERE PLANNING FOR 5[facility] TO ATTEMPT AUTHORIZATION WITH PATIENT'S INSURANCE FOR ACUTE REHAB STAY OF 03/03/21. AUTHORIZATION PROCESS INITIATED BY SEA AIR LAND OFFICER WHEN INFORMATION RECEIVED THAT HOSPITALIST INFORMED FAMILY PATIENT ON THIS DATE, 03/04, THAT PATIENT WAS NOT APPROPRIATE FOR ACUTE REHAB AND NEEDED TO GO TO SKILLED. FAMILY LOOKING NOW AT SKILLED OPTION. AUTHORIZATION REQUEST WAS CANCELLED WITH PATIENT'S INSURNACE. D/C LARGE SHEETFED PRESS OPERATOR AWARE OF ABOVE.
[2021-03-04 16:23] VITALS: BP 148/67
--- NOTE | 2021-03-04 17:05 | NUR ---
SPOKE WITH 5N RN PRACTIONER WHO REPORTS SHE MET WITH PATIENT AND DTR AND THEY HAVE SAID NO TO ACUTE REHAB AND INTERESTED IN SKILLED CARE. SP WITH DTR AT BEDSIDE SHE REPORTS SHE AND OTHER SISTERS MEETING THIS EVENING TO CHOICE SKILLED LIST. SHE REPORTS SHE REQUESTS AN ADVOCATE HER SISTER IS COMING AND SHE WANTS TO SPEND THE NIGHT. RAQUEL/PRUDENCIO BARROW NON CDL DRIVER OF UNIT AND RISK MANAGEMENT.
--- NOTE | 2021-03-04 18:54 | NUR ---
Daughter Juliann requested to speak to myself and pt advocate regarding wanting to stay overnight with the pt. pt is not compulsive or combative, has no needs that would require a 1:1. Robert blayne Rivera was notified regarding the request, he came to the room and talked to a different daughter regarding DPOA and the overnight request. Diet order was clairfied as requested by daughter. Juliann did arrive to the unit, the physician and myself went to the bedside to address Juliann's questions and concerns. She requested that dressings be changed during day shift, requested noted by the doctor and approved, I educated Juliann that due to current time this would start tomorrow. She did request to stay all night with pt, I informed her of the policy and that I had reached out and confirmed it with risk. Juliann verbally understood. Ozzy the night nurse was brought in and introduced to the pt and to Juliann. A POC was made for the shift stacker, Khoa was satisified with this POC. No additional questions or concerns were voiced at this time.
[2021-03-04 21:00] VITALS: BP 162/82
[2021-03-05 04:15] VITALS: BP 133/67
[2021-03-05 07:29] VITALS: BP 169/88
[2021-03-05 10:03] LABS: CALCIUM 8.2 mg/dL (8.5-10.1); CREATININE 5.8 mg/dL (0.7-1.3); PHOSPHORUS 4.8 mg/dL (2.6-4.7); POTASSIUM 5.2 mmol/L (3.5-5.1)
--- NOTE | 2021-03-05 11:51 | NUR ---
PT REPOSITIONED, ARMS UP ON PILLOWS. FAMILY AND PATIENT VOICES NO CONERNS AT THIS TIME. PT AND FAMILY EDUCATED WOUND CARE WILL OCCUR THIS AFTERNOON. ASSESSMENT UNCHANGED. WILL CONTINUE TO MONITOR AND FOLLOW POC.
--- NOTE | 2021-03-05 15:52 | NUR ---
FAMILY HAS NOW DECIDED THAT THEY WOULD LIKE PATIENT TO COME TO ACUTE REHAB AND DR. NGUYEN IS SUPPORTING PLAN TO SUBMIT FOR ACUTE REHAB/5[facility] AUTHORIZATION. REQUEST MADE FOR AUTHORIZATION TO [facility] AND CLINICAL INFORMATION SENT. WILL AWAIT RESPONSE FROM [employer]. THANK YOU FOR THIS REFERRAL.
--- NOTE | 2021-03-05 15:56 | NUR ---
WOUND CARE GIVEN BY RN PER WOUND CARE ORDERS.PT TOLERATES WOULD CARE FAIR. PT YELLS OUT "SON OF A BITCH" "GODDDAMMIT" MULTIPLE TIMES. AFTER WOUND CARE, ASSESSMENT PERFORMED CHARTED. ASSESSMENT UNCHANGED. PTS DAUGHTER HUMBERTO EDUCATED DURING WOUND CARE, HOWEVER SHE WAS IN AND OUT OF THE ROOM DURING WOUND CARE. PICTURES OF WOUNDS TAKEN AND PLACED IN CHART. VSS. WILL CONTINUE TO MONITOR. PT IN CHAIR AT THIS TIME. WILL CONTINUE TO FOLLOW POC.
[2021-03-05 16:13] VITALS: BP 1428/80
--- NOTE | 2021-03-05 16:38 | NUR ---
sp with nisha Spence at bedside. She requests casemgt call dtr Ijeoma. Spoke with Ijeoma who reports in agreement with 5[facility] acute rehab. Discussed skilled list given to her sister is for review if no auth for 5[facility].
[2021-03-05 20:13] VITALS: BP 155/71
[2021-03-06 07:51] LABS: ALBUMIN 2.2 g/dL (3.4-5.0); CALCIUM 8.7 mg/dL (8.5-10.1); CREATININE 5.5 mg/dL (0.7-1.3); PHOSPHORUS 5.4 mg/dL (2.5-4.9)
--- NOTE | 2021-03-06 08:54 | NUR ---
ASSUMED PT CARE AT 0700, PT IN BED EATING BREAKFAST WITH DAUGHTER. PT ASSESSMENT PERFORMED CHARTED. FINISHING UP THE MEDICATIONS, SPEECH THERAPY IN ROOM TO ATTEMPT AN EVAL. VSS. WILL CONTINUE TO MONITOR AND FOLLOW POC.
[2021-03-06 09:06] LABS: POTASSIUM 6.1 mmol/L (3.5-5.1)
[2021-03-06 11:38] VITALS: BP 155/96
--- NOTE | 2021-03-06 11:42 | NUR ---
PT IN BED WITH DAUGHTER HUMBERTO AT BEDSIDE. PT NOW MED SURG STATUS. VSS. WILL CONTINUE TO MONITOR AND FOLLOW POC.
--- NOTE | 2021-03-06 13:37 | NUR ---
PT DENIED BY [facility] FOR 5N INPATIENT REHAB CITING ACUTE KIDNEY ISSUES ARE NOT RESOLVED AND FURTHER HOSPITAL STAY REQUIRED. DR NGUYEN WILLING TO DO PEER TO PEER. PHONE NUMBER: . PEER TO PEER MUST BE COMPLETED BY 11:00 ON 03/11. INFORMATION PROVIDED BY BETHANIE DAHL OF [facility]
--- NOTE | 2021-03-06 14:22 | NUR ---
VM FROM [facility] WITH DENIAL FOR ACUTE REHAB AUTH REQUEST. PEER TO PEER SET UP FOR [facility] DR. LACKEY TO CALL DR. NGUYEN 03/07/[address] NGUYEN AGREEABLE AND UPDATED. 2N CM AND 5N ADMISSION UPDATED. EL
--- NOTE | 2021-03-06 15:13 | NUR ---
AT 1445, WOUND CARE GIVEN DIRECTED BY WOUND ORDERS. PT TOLERATED PROCEDURE BETTER TODAY THAN YESTERDAY WITH ONLY YELLING OUT ONCE. VSS. WILL CONTINUE TO MONITOR AND FOLLOW POC.
--- NOTE | 2021-03-06 16:19 | NUR ---
PTS FAMILY AT BEDSIDE, PT RESTING AT THIS TIME. NO CONCERNS VOICED AT THIS TIME. VSS. WILL CONTINUE TO MONITOR AND FOLLOW POC.
[2021-03-06 19:47] VITALS: BP 143/87
[2021-03-07 03:29] LABS: ALBUMIN 2.3 g/dL (3.4-5.0); CALCIUM 8.4 mg/dL (8.5-10.1); CREATININE 5.2 mg/dL (0.7-1.3); PHOSPHORUS 5.1 mg/dL (2.5-4.9)
[2021-03-07 04:47] LABS: POTASSIUM 5.9 mmol/L (3.5-5.1)
[2021-03-07 04:56] VITALS: BP 159/77
--- NOTE | 2021-03-07 06:47 | NUR ---
ASSESSMENTS CHARTED, MEDS CHARTED GIVEN. PATIENT RESTING IN BED DURING SHIFT. ON MAINTENANCE FLUIDS DURING SHIFT. FARRELL IN PLACE. STOOLED ONCE. LEFT ARM WOUND, RIGHT FOOT WOUNDS WERE REDRESSED PATIENT REMOVED THEM. PATIENT TURNED DURING NIGHT. FALL PRECAUTIONS DURING SHIFT.
--- NOTE | 2021-03-07 16:05 | NUR ---
[facility] acute rehab liatori indicates auth rec'd for admission. They will need a covid test prior to admission this evening or in the am. Nursing to order covid now and swab the pt as soon as possible. Pt not wanting nasal swab. Nursing to retry. 5N zeny updated. Dtr at bedside.
[2021-03-07] MEDS ORDERED: HYDRALAZINE 2525 MG PO (16:11)
[2021-03-07] MEDS ORDERED: ACETAMINOPHEN325 M1 PO (16:12)
[2021-03-07] MEDS ORDERED: BAYER CHEWABLE81 MG PO (16:12)
[2021-03-07] MEDS ORDERED: PROTONIX 20 MG20 M1 PO (16:13)
[2021-03-07 16:42] VITALS: BP 157/80
--- NOTE | 2021-03-10 12:35 | HC ---
[facility] [place] [address] CONSULTATION Name: EMILY DELVALLE Room #: 207-P [facility] .R.#: [id number] Admission: 02/21/21 Attend Phys: Stiven Becerra MD Discharge: 03/07/21 Date of : 40 Report #: [id number] THIS REPORT FOR: cc: Rosa Mullins Stefany RNP Smithson, David G. MD ~ DOC #: [id number] Martinez Aburto MD DATE OF SERVICE: 02/27/2021 HISTORY OF PRESENT ILLNESS: This is an 80-year-old white male who lives alone with his daughters frequently checking in on him. The daughter called to check in on him and he was doing fine and getting ready to mow. Upon calling back the next day, they did not get any answer and he was checked on and had been down on the cement for what is estimated at a total of 32 hours. He was noted to have significant mental status changes with metabolic encephalopathy. CT of the head was negative. He had severe rhabdomyolysis with elevated CPK, acute renal insufficiency superimposed on chronic renal insufficiency. His creatinine is gradually worsening and it is up to 7.7. Upon admission it was 2.3. His admission sodium was markedly elevated at 163, but it has come down to 141. Nephrology is closely involved. He has the worsening renal function, which is expected with the dense acute tubular necrosis. It is noted that it will take a long time for his renal function to recover. Creatinine is starting to plateau. He has been treated for sepsis. He has severe sunburns with extensive pressure ulcers. We are seeing him in rehabilitation medicine consultation. PAST MEDICAL HISTORY: Includes coronary artery disease, apparently CABG was recommended, which was refused; history of hypertension, elevated lipids, chronic kidney disease. MEDICATIONS: Please see the full medication listing. CODE STATUS: Full. ALLERGIES: No known drug allergies. MILD BLOATING NOTED WITH PORK AND SEAFOOD. SOCIAL HISTORY: As noted above, he lives alone in house. He had been doing his own laundry down stairs, up until the last couple of months. His daughters to call every day and visit on Sundays. He has 3 daughters that are in the area. One of the daughters works from the home and is making plans to move into his house down the road to be with him when he is strong enough to hopefully return back to the home setting. He had been doing rare driving and was ambulatory as noted above including doing his own mowing. REVIEW OF SYSTEMS: No current complaints of chest pain, shortness of breath or abdominal discomfort. [facility] [address] [place] [address] CONSULTATION Name: MOOKEMILY Room #: 207-P [facility] IN ..#: [id number] Admission: 02/21/21 Attend Phys: Stiven Becerra MD Discharge: 03/07/21 Date of : 40 Report #: [id number] PHYSICAL EXAMINATION: GENERAL: An 80-year-old white male who appears somewhat younger than stated age. He is pleasant. There is a latency to his responses, but he follows basic 1-step commands. VITAL SIGNS: Temperature 97.4, pulse 72, respirations 18, blood pressure is 166/78. NEUROLOGIC: Facies appeared symmetric. He does have dressings in place from the blisters that have opened up including left elbow, right thigh, and right leg. Functional range of motion of the right upper extremity strength is grade 3+/5. Left upper extremity has a little swelling around the blister and dressed area and has discomfort with strength probably a grade 3+/5. Lower extremities, some discomfort as expected. Strength is probably a grade 3 to 3+/5. He is able to dorsiflex his feet, probably 4-. Tone appeared to be intact. No focal calf swelling. Functionally, he is on a nectar thickened liquid diet with speech therapy involved. ASSESSMENT: An 80-year-old white male with the following problems: 1. Metabolic encephalopathy. 2. Severe rhabdomyolysis, found down on concrete. 3. Acute renal insufficiency superimposed on chronic kidney disease. He has worsening renal function as expected with acute tubular necrosis. 4. Sepsis. 5. Severe hypernatremia, now improved. 6. Severe sunburns/extensive pressure ulcers. 7. Coronary artery disease. 8. Hypertension. 9. Elevated lipids. 10. Prior history of some chronic kidney disease. PLAN: Therapy is working with him on basic functional issues. Family is very supportive as noted above. He certainly may warrant an acute in-hospital inpatient rehabilitation stay as he further medically stabilizes. He needs close medical management and nephrology is closely involved with his acute tubular necrosis and his multiple medical issues can be monitored during an acute inpatient in-hospital rehabilitation palmer stay. We will have therapies work with him in the meantime and we will continue to follow along regarding his rehab therapy needs. Thank you for asking us to assist in this patient's care. Martinez Aburto MD [address] [address] CONSULTATION Name: EMILY DELVALLE Room #: 207-P [facility] IN M.R.#: [id number] Admission: 02/21/21 Attend Phys: Stiven Becerra MD Discharge: 03/07/21 Date of : 40 Report #: [id number] <ELECTRONICALLY SIGNED> By: Martinez Aburto MD 03/10/21 1235 [id number] [id number] Martinez Aburto MD /nt
== END 2021-03-07 19:18 | DRG 871 ==
LOC: ER 19:14 → ICU 21:57 → EROBS 21:57 → ICU 22:37 → 2N 02-26 19:09
PROVIDERS: Hospitalist; Internal Medicine Nephrology; Nurse Practitioner; Nurse Practitioner Family; Physician Assistant; Specialist; ADMIT Hospitalist; ATTEND Hospitalist
DX: A41.81 Sepsis due to Enterococcus (principal); L89.513 Pressure ulcer of right ankle, stage 3; L89.103 Pressure ulcer of unspecified part of back, stage 3; L89.213 Pressure ulcer of right hip, stage 3; G93.41 Metabolic encephalopathy; R57.1 Hypovolemic shock; I21.4 Non-ST elevation (NSTEMI) myocardial infarction; E43 Unspecified severe protein-calorie malnutrition; N17.9 Acute kidney failure, unspecified; M62.82 Rhabdomyolysis; E87.0 Hyperosmolality and hypernatremia; N39.0 Urinary tract infection, site not specified; I42.9 Cardiomyopathy, unspecified; E87.2 Acidosis; A41.1 Sepsis due to other specified staphylococcus; R77.8 Other specified abnormalities of plasma proteins; Z20.822 Contact with and (suspected) exposure to COVID-19; E78.00 Pure hypercholesterolemia, unspecified; I25.10 Atherosclerotic heart disease of native coronary artery without angina pectoris; E78.5 Hyperlipidemia, unspecified; Z60.2 Problems related to living alone; M19.90 Unspecified osteoarthritis, unspecified site; L89.892 Pressure ulcer of other site, stage 2; L89.322 Pressure ulcer of left buttock, stage 2; L89.152 Pressure ulcer of sacral region, stage 2; R53.81 Other malaise; L89.312 Pressure ulcer of right buttock, stage 2; Z68.29 Body mass index [BMI] 29.0-29.9, adult; L55.1 Sunburn of second degree; S70.222A Blister (nonthermal), left hip, initial encounter; S30.821A Blister (nonthermal) of abdominal wall, initial encounter; S40.822A Blister (nonthermal) of left upper arm, initial encounter; I12.9 Hypertensive chronic kidney disease with stage 1 through stage 4 chronic kidney disease, or unspecified chronic kidney disease; R74.01 Elevation of levels of liver transaminase levels; S71.101A Unspecified open wound, right thigh, initial encounter; N18.30 Chronic kidney disease, stage 3 unspecified; E87.8 Other disorders of electrolyte and fluid balance, not elsewhere classified; E87.5 Hyperkalemia; E86.0 Dehydration; R41.0 Disorientation, unspecified; I25.2 Old myocardial infarction; Z91.02 Food additives allergy status; Z91.013 Allergy to seafood; Z87.891 Personal history of nicotine dependence; Z91.14 Patient's other noncompliance with medication regimen; W18.39XA Other fall on same level, initial encounter; Y93.89 Activity, other specified; Y92.89 Other specified places as the place of occurrence of the external cause; Y99.8 Other external cause status
CPT/HCPCS: 10078; 10081; 65040

== ENCOUNTER 2021-03-07 15:12 | Inpatient (IN) | payer OTHER ==
[~2021-03-07] VITALS: Ht 172.7 cm; Wt 84.8 kg
[2021-03-07] MEDS ORDERED: HYDRALAZINE 2525 MG PO (16:11)
[2021-03-07] MEDS ORDERED: BAYER CHEWABLE81 MG PO (16:12)
[2021-03-07] MEDS ORDERED: ACETAMINOPHEN325 M1 PO (16:12)
[2021-03-07] MEDS ORDERED: PROTONIX 20 MG20 M1 PO (16:13)
[2021-03-07 21:19] VITALS: BP 135/73
--- NOTE | 2021-03-08 03:45 | NUR ---
ADMIT FRON CCU TO [facility] , DISCUSSED OF PLAN WITH DAUGHTER AND PATIENT, BOTH IS A AGREEABLE.PT COMFORTABLE CALL LIGHT IN PLACE. ADMISSIOM ASSESSMENT AND ADAT BAG COMPLETED
[2021-03-08 06:00] LABS: HEMATOCRIT 37.2 % (42.0-52.0); HEMOGLOBIN 12.2 gm/dL (14.0-18.0); MCH 28.2 pg (26.0-34.0); MCHC 32.9 g/dL (28.0-37.0); MCV 85.9 fL (80.0-100.0); RBC 4.33 mil/uL (4.50-6.00); RDW 15.4 % (10.5-14.5); WBC 8.7 thou/uL (4.0-11.0)
[2021-03-08 06:19] LABS: ALBUMIN 2.5 g/dL (3.4-5.0); CALCIUM 8.7 mg/dL (8.5-10.1); PHOSPHORUS 5.3 mg/dL (2.5-4.9); POTASSIUM 5.2 mmol/L (3.5-5.1)
[2021-03-08 06:46] LABS: FOLIC ACID 9.3 ng/mL (8.6-58.9)
[2021-03-08 08:00] VITALS: BP 167/84
--- NOTE | 2021-03-08 18:26 | NUR ---
ASSUMED CARE AT 0700. ALERT AND ORIENTATED X 1-2. DENIES ANY PAIN FOR NOW. APPETITE FAIR. HAD A LARGE BM TODAY. GOOD OUTPUT VIA FARRELL. UP WITH MOD ASSIST TO BSC. DRESSING CHANGE DONE TO WOUNDS (6) AND DOCUMENTED. REPORTED SOME DISCOMFORT DURING DRESSING CHANGES BUT DID NOT REQ FOR PAIN MEDS. STARTED ON IVF. TOLERATED PO MEDS WITH WATER. WORKED WITH THERAPY TODAY MUCH TOLERATED. DAUGHTER AT BEDSIDE AND ALL QUESTIONS AND CONCERNS ADDRESSED AND ANSWERED. ALSO CONCERNED ABOUT NOT SLEEPING WELL LAST NIGHT AND SEEMS MORE TIRED TODAY.
[2021-03-08 20:35] VITALS: BP 147/57
--- NOTE | 2021-03-09 00:39 | NUR ---
PT ASSESSMENT COMPLETED AND VSS. MEDS GIVEN ORDERED AND WELL TOLERATED. FALL PRECAUTIONS IN PLACE. ASST WITH REPOSITION FOR COMFORT. DRESSING DRY AND INTACT. PT STATES THAT HE IS COMFORTABLE. SUPPORTIVE DAUGHTER AT BEDSIDE UNTIL 9 PM THIS EVENING. PT SLEEPING AT THIS TIME. WILL CONTINUE TO MONITOR FREQUENTLY.
[2021-03-09 04:50] LABS: ALBUMIN 2.4 g/dL (3.4-5.0); CALCIUM 8.4 mg/dL (8.5-10.1); CREATININE 4.7 mg/dL (0.7-1.3); PHOSPHORUS 4.7 mg/dL (2.5-4.9); POTASSIUM 4.9 mmol/L (3.5-5.1)
[2021-03-09 08:42] VITALS: BP 160/63
--- NOTE | 2021-03-09 12:35 | NUR ---
ASSUMED CARE AT 0700. ALERT AND ORIENTATED X 2-3. HAS A FLAT EFFECT AND NOT ABLE TO VOICE NEEDS. DAUGHTER CONSTANTLY AT BEDSIDE AND IS VERY INVOLVED IN HIS CARE. DENIES ANY PAIN BUT DOES REPORT DISCOMFORT WITH MOVEMENT. APPETITE IS POOR, NEEDS FREQ CUING WITH TAKING MEDS OR EATING HIS MEALS. ATE 20% EACH MEALS. PT EDUCATED TO INC PROTEIN INTAKE WITH CONSUMING PROTEIN DRINK BUT ONLY DRINKS PARTIALLY. DRESSING TO WOUNDS DONE. HAD A SMALL BM TODAY. REFUSED PHY THERAPY TODAY. DAUGHTER ALSO CONCERNED ABOUT PT NOT GETTING MUCH SLEEP AND HAS BEEN TIRED MOST OF THE DAY TODAY.
[2021-03-09 19:50] VITALS: BP 147/80
--- NOTE | 2021-03-10 04:57 | NUR ---
ASSESSMENT DOCUMENTED.PT BEEN RESTING IN NO NEW ACUTE DISTRESS.VSS.PT A/O TO SELF,CONFUSED.VSS.PT BEEN UP MOST OF THE NOC,SLEPT FOR ABOUT AN HOUR TOWARDS MORNING HOURS.DENIES PAIN OR NO S/SX OF PAIN NOTED.BUD DD,LARGE AMOUNT OF URINE 1750ML SO FAR THIS SHIFT. DAUGHTER SPENT TIME WITH PT TILL 9PM,THEN AFTER LEAVING SHE CALLED THREE TIMES ASKING STAFF TO DO DIFFERENT STUFF TO HELP DAD FALL A SLEEP SUCH TURNING TV ON AND OFF.CURRENTLY PT SLEEPING.PT DENIES ANY NEEDS.
[2021-03-10 05:26] LABS: ALBUMIN 2.4 g/dL (3.4-5.0); CALCIUM 8.3 mg/dL (8.5-10.1); CREATININE 4.4 mg/dL (0.7-1.3); POTASSIUM 5.1 mmol/L (3.5-5.1)
[2021-03-10 07:15] VITALS: BP 150/79
--- NOTE | 2021-03-10 09:46 | NUR ---
WOUND CARE; BI APPLICATION DEVELOPER IN ROOM NEEDING ASSIST W/ DRSG CHANGES, DAUGHTER ALSO AT BS, PT AWAKE, ALERT, STATES WOUNDS DO NOT HURT MUCH ANY MORE, WOUND CARE DONE TO L ARM AND R INNER THIGH, HEALING, SCANT DRAINAGE, YELLOW SLOUGH STILL PRESENT, NO ODOR, NO S/S INFECTION, REDRESSED PER ORDERS, SEE PROCESS INTERVENTION FOR WOUND DETAILS, WILL CHANGE OTHER WOUND DRSGS WHEN WOUND DR HERE TODAY BI APPLICATION DEVELOPER AWARE
--- NOTE | 2021-03-10 14:50 | NUR ---
ASSUMED CARE AT 0700. DID NOT SLEEP WELL. MANAGED TO GET SOME SLEEP AFTER 0400 TILL 0700. HE SEEMS MORE AWAKE AND COMMUNICATING MORE WITH THIS NURSE. HE ATE HIS BREAKFAST AND TOOK HIS AM MEDS WITHOUT ANY DIFFICULTY. ABLE TO VOICE NEEDS BETTER. A DIFFERENT DAUGHTER WAS AT THE BEDSIDE TODAY AND SHE VERBALIZES CONCERNS AND FEAR HOURS OF THERAPY. SPOKE TO HER REGARDING IMPORTANCE OF THERAPY SESSION TO INC STRENGTH AND ENDURANCE. PT PARTICIPATED WITH THERAPY AND MORE COOPERATIVE TO FOLLOW INSTRUCTIONS. DRESSING CHANGES DONE TO WOUND CARE. AWAITING FOR WOUND TEAM FOR SEE WOUND.
--- NOTE | 2021-03-10 16:07 | NUR ---
Chart review. Cm visited with nati and daughters while he was in the icu prior to acute rehab. Prior to hospital, he independent. Lives alone. cooks, clears, does laundry. 1 stet to enter home and flight stairs, 12 to basement. Manage own medication, drives vehicle and mows the grass. Daughter can run errands if needed for groceries prior to hospital. No hh or rehab in the past. PCP dr Mullins. Will cont following as needed for dc needs.
[2021-03-10 20:20] VITALS: BP 159/77
--- NOTE | 2021-03-11 00:17 | NUR ---
PT ALERT AND ORIENTED X 1. IV INFUSING ORDERED. FARRELL PATENT DRAINING CLEAR YELLOW URINE. PT REFUSED MEDS AT HS. DENIES PAIN OR DISCOMFORT. PRAFO BOOTS PUT ON AT HS. DAUGHTER CALLED DURING THE NIGHT INQUIRING ABOUT PT. SHE SEEMS VERY ANXIOUS ABOUT WHETHER OR NOT PT IS SLEEPING. PT APPEARS TO BE SLEEPING ON HOURLY ROUNDS. BED ALARM ON FOR SAFETY.
[2021-03-11 09:46] VITALS: BP 148/93
[2021-03-11 11:08] LABS: ALBUMIN 2.5 g/dL (3.4-5.0); CALCIUM 8.5 mg/dL (8.5-10.1); CREATININE 4.3 mg/dL (0.7-1.3); PHOSPHORUS 4.5 mg/dL (2.5-4.9); POTASSIUM 4.4 mmol/L (3.5-5.1)
--- NOTE | 2021-03-11 12:57 | NUR ---
Team meeting, recommendation: he is working with therapy. wound care involved. using fww with therapy. sever cog/memory. poor insight. prior falls before the fall in yard when going to mow. Daughters are not to feed him; he needs to feed himself at meals. Passed on from OT that Juliann says she going to stay with him when he goes home. Reteam.
--- NOTE | 2021-03-11 19:37 | NUR ---
PT ALERT AND ORIENTED TIMES THREE. VSS. IVF INFUSING PER ORDER. PT DENIES PAIN/SOA. DRESSING CHANGED TODAY. PT TOLERATES MEDS AND MEALS. PT DAUGHTERS AT BEDSIDE TODAY. PT PROGRESSING TOWRADS POC GOALS.
[2021-03-11 19:55] VITALS: BP 167/77
--- NOTE | 2021-03-12 02:48 | NUR ---
ASSESSMENT: PT REMAIN ALERT AND ORIENT TIMES THREE. CONFUSED AT TIMES OF SITUATION AND PLACE. ASHLEY, PT'S DAUGHTER AT THE BEDSIDE UNTIL 0930. PT TALKS OF GETTING OUT OF BED WITHOUT ASSISTANCE PER THE DAUGHTER. BED ALARM ON. PT STATES THAT HE WAS GETTING OUT OF BED TO "MEET WITH THE CONTRACTOR". PT WAS REORIENT TO PLACE AND SITUATION. VSS, AFEBRILE. SLOW PROGRESS TOWARDS DC GOAL, WILL CONTINUE TO MONITOR. DRESSING INTACT, WAS CHANGED ON DAY SHIFT. WILL CONTINUE TO MONITOR.
[2021-03-12 07:15] VITALS: BP 159/82
--- NOTE | 2021-03-12 16:30 | NUR ---
PT WORKED WITH PT/OT TODAY. ALL WOUND CARE DONE AT BEDSIDE. PT AFEBRILE, ADEQUATE UOP, NO BM, APPROPRIATE APPETITE. PT AND DAUGHTER AT BEDSIDE HAVE BEEN THOUROUGHLY UPDATED AND EDUCATED ON PT CONDITION AND POC. PT SLOWLY PROGRESSING TOWARDS POC.
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
[2021-03-12 19:57] VITALS: BP 149/66
--- NOTE | 2021-03-13 04:09 | NUR ---
ASSUMED CARE AT 1900 OF 03/12. PATIENT IS A&O TO SELF, DROWSY AT START OF SHIFT. DAUGHTER WAS AT BED SIDE AT BEGINNING OF SHIFT AND REPORTED THAT SHE HAS BEEN SLEEPING
[2021-03-13 06:20] LABS: ABSOLUTE NEUTROPHILS 5.1 thou/uL (1.4-8.2); BASOPHILS 1.1 % (0.0-2.0); EOSINOPHILS 2.5 % (0.0-3.0); HEMATOCRIT 34.2 % (42.0-52.0); HEMOGLOBIN 11.4 gm/dL (14.0-18.0); MCH 28.3 pg (26.0-34.0); MCHC 33.3 g/dL (28.0-37.0); MONOCYTES 7.6 % (1.0-8.0); PLATELET COUNT 317 thou/uL (150-400); POLYS 69.8 % (36.0-66.0); RBC 4.03 mil/uL (4.50-6.00); RDW 15.8 % (10.5-14.5); WBC 7.3 thou/uL (4.0-11.0)
[2021-03-13 06:45] LABS: ALBUMIN 2.5 g/dL (3.4-5.0); CALCIUM 8.2 mg/dL (8.5-10.1); CREATININE 3.9 mg/dL (0.7-1.3); MAGNESIUM 1.8 mg/dL (1.8-2.4); PHOSPHORUS 4.8 mg/dL (2.5-4.9); POTASSIUM 4.5 mmol/L (3.5-5.1)
[2021-03-13 08:22] VITALS: BP 142/69
--- NOTE | 2021-03-13 09:22 | NUR ---
DTR ASHLEY HERE THIS AM, SHE USUALLY IS HERE FROM 06-09. PT WAS SLEEPING THIS AM AND TALKED TO VILLA, SHE WAS WONDERING ABOUT GETTING INFO ON DPOA. SHE STATED THAT [place] WOULD BE IN AND TO NOT TO BRING INFO UNTIL AFTER 3PM SO THERE IS NO CONFLICTS. PT HAS IV FLUIDS RUNNING. PT IN AND OUT OF SLEEP. PT HAD BM TODAY. PT HAS FARRELL TO DD WITH CLEAR YELLOW URINE. PT ON ROOM AIR. PT HAS DRESSING TO RT HIP, LEFT LATERAL SIDE/GROIN, WOUND TO RT LATERAL FOOT, AND SACRAL AREA. DTR STATED HE WAS GETTING UPSET STOMACH AFTER MEDS SO SHE WANTED APPLESAUCE WITH MEDS. PT DID TAKE MEDS AND ATE A FEW BITES OF APPLESAUCE.
--- NOTE | 2021-03-13 11:27 | NUR ---
Bedside notified cm that daughter/domo want information on dpoa/healthcare dir. Cm left resources for patient and daughters to discuss. Cont with dcp.
--- NOTE | 2021-03-13 15:00 | NUR ---
PT HAS IV SITE TO RT FA AND RT UPPER ARM, SITES REMOVED DUE TO NEEDING NEW IV SITE FOR FLUIDS. NO SIGNS OF REDDNESS OR SWELLING TO SITES.
--- NOTE | 2021-03-13 15:20 | NUR ---
ANOTHER NURSE HERE ON REHAB ATTEMPTED X1 WITH NO SUCCESS, IV TEAM IS PAGED FOR NEW ACCESS.
[2021-03-13 20:11] VITALS: BP 163/69
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
--- NOTE | 2021-03-14 00:08 | NUR ---
PT ALERT AND ORIENTED X 1. IV INFUSING ORDERED. FARRELL PATENT DRAINING CLEAR YELLOW URINE. TRAZADONE NOT GIVEN AT HS PER DAUGHTER. SHE STATED DR WANTED HIM TO HAVE HALDOL AT HS. MED GIVEN ORDERED. DRESSINGS C/D/I. BED ALARM ON FOR SAFETY. PT HAS BEEN AWAKE ON HOURLY ROUNDS.
[2021-03-14 05:50] LABS: ALBUMIN 2.5 g/dL (3.4-5.0); CALCIUM 8.1 mg/dL (8.5-10.1); CREATININE 4.2 mg/dL (0.7-1.3); PHOSPHORUS 4.3 mg/dL (2.6-4.7); POTASSIUM 4.5 mmol/L (3.5-5.1)
--- NOTE | 2021-03-14 09:58 | NUR ---
WOUND CARE NOTE; EXECUTIVE ASSOCIATE ASKING FOR ASSIST W/ PT WOUND CARE, DAUGHTER AT BS AND UPSET NO DRSG ON L UPPER ARM, WOUND CARE DONE TO L ARM, L GROIN AREA, L LOWER ABD AND R INNER THIGH. CLEANSED W/ NS, SILVADENE/MS CREAM APPLIED, XEROFORM AND BORDER FOAM, PHOTOS TAKEN OF THESE WOUNDS AND PLACED ON CHART, NEEDING SPECIFIC ORDERS FOR L ARM INFORMED KRUPA IYER NP, STATES SHE WILL REVIEW AND PLACE ORDERS WHEN SEEING PT LATER TODAY. ALL WOUNDS DONE NOW STILL SHOW YELLOW/BROWNISH SLOUGH BUT HEALING, NO S/S INFECTION, HEALING, PT TOLERATING WOUND CARE WELL W/ NO C/O PAIN, THERAPY WANTING TO WORK W/ PT NOW SO WILL OTHER WOUND CARE LATER TODAY. EXECUTIVE ASSOCIATE AWARE WOUND CARE TO OTHER WOUNDS LATER TODAY
[2021-03-14 20:25] VITALS: BP 184/96
[2021-03-15 04:40] LABS: HEMATOCRIT 36.3 % (42.0-52.0); MCH 27.8 pg (26.0-34.0); MCV 84.1 fL (80.0-100.0); RBC 4.32 mil/uL (4.50-6.00); RDW 15.8 % (10.5-14.5); WBC 11.5 thou/uL (4.0-11.0)
[2021-03-15 04:59] LABS: CALCIUM 8.6 mg/dL (8.5-10.1); CREATININE 3.8 mg/dL (0.7-1.3); POTASSIUM 4.3 mmol/L (3.5-5.1)
--- NOTE | 2021-03-15 05:01 | NUR ---
ASSUMED CARE AT 1900 OF 03/14. PATIENT IS A&O TO SELF. PATIENT'S DAUGHTER WAS AT BED SIDE AT BEGINNING OF SHIFT AND EXPRESSED THAT SHE WOULD RATHER NOT HAVE PATIENT TAKING TRAZADONE AT HS BUT HALDOL INSTEAD DUE TO PREVIOUS PROVIDER RECOMMENDATION. EDUCATION ABOUT BOTH MEDICATIONS PROVIDED, INCLUDING SIDE EFFECTS. DAUGHTER INSISTED TO ONLY ADMINISTER HALDOL BECAUSE PATIENT REACTION INCLUDE SLEEPINESS. TRAZADONE WAS HELD PER REQUEST. IV FLUIDS INFUSING ON RIGHT UPPER ARM ORDERED, IV DRESSING IS INPLACE AND INTACT. NO S/S OF INFECTION OR INFILTRATION NOTED. PATIENT WAS NOTED DOSING IN AND OUT OF SLEEP DURING HOURLY ROUNDING. AROUND 0215 PATIENT WAS CALLING OUT FOR HELP, AND WAS FOUND IN THE PROCESS OF GETTING OUT OF BED EXPRESSING THAT HE NEEDED TO GO HAVE A BM. 2 ASSIST USING GB TO TRANSFER TO W/C AND TOILET. PATIENT DID HAVE A BM, REQUIRED MODERATE ASSIT WITH TOILETING. FARRELL TO DD, CLEAR LIGHT YELLOW URINE NOTED. RETURENED TO BED, PATIENT RE-EDUCATED ABOUT CALL LIGHT USAGE, EXPRESSED UNDERSTANDING. CURRENTLY SLEEPING IN BED, BED ALARM ON AND CALL LIGHT W/IN REACH. WILL CONTINUE TO MONITOR. SLEEPING IN BED
[2021-03-15 07:15] VITALS: BP 194/85
--- NOTE | 2021-03-15 08:39 | NUR ---
PT LYING IN BED AT THIS TIME. DTR ASHLEY AT BEDSIDE. PT TOOK AM MEDS WITH WATER. PT DID DRINK PROTIEN ENSURE THIS AM. PT HAS BEEN REFUSING TO DRINK WATER AND EAT. PT HAS D5 1/2 NS RUNNING AT 80ML/HR TO RT UPPER ARM. NO SIGNS OF REDDNESS TO IV SITE. PT HAS WOUNDS TO LEFT ELBOW, LEFT ABD, LEFT THIGH, RT THIGH, AND RT LATERAL THIGH, SCAB TO LEFT BIG TOE. DTR NOTICED RT FOOT ON SIDE WAS A SCAB. PT TOOK MEDS ALL AT ONCE IN MED CUP. LUNGS CLEAR AND ON ROOM AIR.
--- NOTE | 2021-03-15 12:21 | NUR ---
DTR WANTS TO HAVE NOTARY TO SIGN DPOA PAPERWORK. CALLED [facility] AND THEY STATED NIGHT [facility] CAN NOTARY AND SHE WILL BE HERE AT 1845. CALLED ER AND THEY STATED NO NOTARY HERE AT THIS TIME.
--- NOTE | 2021-03-15 19:30 | NUR ---
DTR CONCERNED ABOUT HIS COUGH, SHE STATED THAT HE IS COUGHING MORE THAN YESTERDAY AND WANTED TO KNOW ABOUT HIM GETTING AN XRAY. SHE STATED SHE HAD A GRANDMA THAT HAD SOME WHEEZES AND THEY DIDN'T DO XRAY AND THEN WHEN THEY DID DO ONE THEY FOUND SOMETHING. PT LOOKED AT DTR AND PUT HIS HAND UP LIKE HE WAS SLIGHTLY IRRITATED WITH HER COMMENT ABOUT HIS COUGH.
[2021-03-15 20:48] VITALS: BP 183/100
[2021-03-15 22:00] VITALS: BP 149/79
[2021-03-16 05:44] LABS: ALBUMIN 2.8 g/dL (3.4-5.0); CALCIUM 8.9 mg/dL (8.5-10.1); CREATININE 3.5 mg/dL (0.7-1.3); PHOSPHORUS 3.5 mg/dL (2.5-4.9); POTASSIUM 4.5 mmol/L (3.5-5.1)
--- NOTE | 2021-03-16 06:15 | NUR ---
PT RESTED WELL THROUHGOUT HOURLY ROUNDS, PT ONLY DRANK 120 ML THIS SHIFT, DENIES PAIN, PT TURNED TO SIDE R/L TOLERATED WELL. NO BOWEL MOVEMENT THIS SHIFT, IV FLUIDS INFUSING WELL . DRY COUGH NOTED AFTER AM PILLS TAKEN, PT STATES HE HAD SWALLOWED PILLS. PT REMAINS ALERTT TO SELF AND PLACE
--- NOTE | 2021-03-16 08:30 | NUR ---
ASHLEY DTR AT BEDSIDE AND STATED HER DAD FEELS WARM TO TOUCH. SHE STATED HE HAS HAD A NON-PRODUCTIVE COUGH FOR A FEW DAYS AND HE SAYS HE IS SOA, PT SAT 96% ON ROOM AIR, NO SIGNS OF DYPSNEA. PT HAS EXP WHEEZE TO LLL AND DIMISHED TO RLL. PT FACE APPEARS FLUSHED, TEMP 98.4. PT UNABLE TO USE IS, DTR STATED THAT HE DOESN'T KNOW HOW TO SUCK AND HOLD IN THE AIR. DTR DIDN'T WANT ANY BP TO UPPER EXT DUE TO ICU NURSE STATED NO BP TO UPPER EXT. SHE STATE LETS TRY LEFT ARM DUE TO NO IV TO THAT ARM, THE LEFT ARM HAS LIMB ALERT TO ARM AND DTR STATED THE LIMB ALERT IS SUPPOSED TO BE TO BOTH ARMS. SHE SAID THAT BP IS SUPPOSED TO BE TAKEN TO LOWER EXT AND THAT THERE WAS AN ORDER STATING THAT DOWNSTAIRS. THIS VENEER JOINTER DID NOT SEE PREVIOUS ORDER FOR BP TO LOWER EXT. PT HAS PAIN WITH BP TO LOWER EXT. PT DID HAVE IV TO RT FOREARM BEFORE, NOT AT THIS TIME. PT IV TO RT UPPER ARM. PT HAS WOUNDS TO LEFT ABD, LEFT UPPER THIGH, RT THIGH, RT LATERAL THIGH THAT HAVE DRESSINGS.
--- NOTE | 2021-03-16 08:40 | NUR ---
DTR STATED HE DAD IS HAVING TROUBLE BREATHING, PT IS NOT IN ANY DISTRESS AT THIS TIME, RESP RATE 20, SAT IS 94%, PT ALSO COMPLAINING OF HEADACHE, TYLENOL WAS GIVEN EARLY AT 0431.
--- NOTE | 2021-03-16 08:50 | NUR ---
DR. NIETO NOTIFIED OF DTR REQUEST FOR XRAY DUE TO COMPLAINING OF SOB AND LUNG SOUNDS. STATED HE WILL LOOK AT HIS CHART AND WRITE ORDERS.
[2021-03-16 10:02] LABS: ABSOLUTE NEUTROPHILS 11.5 thou/uL (1.4-8.2); BASOPHILS 0.8 % (0.0-2.0); EOSINOPHILS 0.4 % (0.0-3.0); HEMATOCRIT 36.1 % (42.0-52.0); HEMOGLOBIN 12.4 gm/dL (14.0-18.0); LYMPHOCYTES 10.8 % (24.0-44.0); MCH 28.8 pg (26.0-34.0); MCHC 34.3 g/dL (28.0-37.0); MONOCYTES 7.2 % (1.0-8.0); PLATELET COUNT 330 thou/uL (150-400); POLYS 80.8 % (36.0-66.0); RBC 4.29 mil/uL (4.50-6.00); RDW 15.6 % (10.5-14.5); WBC 14.3 thou/uL (4.0-11.0)
--- NOTE | 2021-03-16 11:00 | NUR ---
DR. NIETO IN ROOM WITH DTRS AND WAS TALKING ABOUT BP CONCERNS TO UPPER EXT. DR. NIETO STATED IT IS MORE ACCURATE FOR BP TO UPPER EXT. THAN LOWER EXT. DTR IS ADAMANT OF HAVING BP TO LOWER EXT DUE TO WHAT ICU NURSES SAID.
--- NOTE | 2021-03-16 11:15 | NUR ---
CALLED [facility] TO SEE WHEN THEY WOULD BE UP TO DO PORTABLE. THEY WAS COMING UP AFTER A COUPLE IN ACUTE FINISHED.
--- NOTE | 2021-03-16 12:15 | NUR ---
PT GETTING CHEST XRAY AT THIS TIME DUE TO COUGH AND SOA PER DTR. PT SAT 94% ON ROOM AIR. PT DOESN'T SEEM IN DISTRESS.
--- NOTE | 2021-03-16 15:20 | NUR ---
PT UP TO CHAIR WITH THERAPY. PT WAS ABLE TO WALK TO BATHROOM TO HAVE BM AND THEN TO CHAIR. ASHLEY ASKED HOW HE WAS FEELING, PT STATED HE DIDN'T FEEL GOOD. OBTAINED UA VIA FARRELL USEING ASEPTIC TECHNIQUE. URINE IS YELLOW AND CLOUDY, NO FOUL ODOR.
[2021-03-16 15:57] LABS: URINE BILIRUBIN NEGATIVE (Negative); URINE BLOOD 3+ (Negative); URINE CLARITY HAZY; URINE COLOR YELLOW; URINE GLUCOSE-RANDOM* NEGATIVE (Negative); URINE KETONES NEGATIVE (Negative); URINE LEUKOCYTES-REFLEX 2+ (Negative); URINE NITRITE-REFLEX POSITIVE (Negative); URINE PROTEIN (DIPSTICK) 2+ (Negative); URINE UROBILINOGEN 0.2 E.U./dl (0.2-1.0)
--- NOTE | 2021-03-16 16:00 | NUR ---
DR. NIETO NOTIFIED ABOUT RESULTS FROM URINE, HE WILL PUT IN ORDERS.
[2021-03-16 16:48] LABS: BACTERIA-REFLEX >30 Many /HPF (None Seen); CASTS None Seen /LPF (None Seen); CRYSTALS None Seen /LPF (None Seen); SQUAMOUS None Seen /LPF (0-3); URINE RBC 3-10 Few /HPF (NONE SEEN); URINE WBC-REFLEX >25 Many /HPF (0-5); YEAST-REFLEX Present (None Seen)
--- NOTE | 2021-03-16 18:13 | NUR ---
STARTED IV ABX, SITE TO LAURENT IS LEAKING AT SITE, DID RETIGHTEN HUB TO NEEDLE AREA, WAS LOOSE. NOTICED SLIGHT REDDNESS ABOVE IV SITE. NO SIGN OF LEAKING AFTER TIGHTEND SITE. PT IN BED AT THIS TIME. PT HAS BEEN CRYING ON AND OFF TO HIS DTR. SHE HAS STATED THAT HE MENTIONED HE IS DYING.
[2021-03-16 19:50] VITALS: BP 152/88
[2021-03-17 05:29] LABS: HEMATOCRIT 32.4 % (42.0-52.0); HEMOGLOBIN 11.3 gm/dL (14.0-18.0); MCH 29.5 pg (26.0-34.0); MCHC 34.8 g/dL (28.0-37.0); MCV 84.8 fL (80.0-100.0); RBC 3.82 mil/uL (4.50-6.00); RDW 15.7 % (10.5-14.5); WBC 10.2 thou/uL (4.0-11.0)
[2021-03-17 05:32] LABS: ALBUMIN 2.5 g/dL (3.4-5.0); CALCIUM 8.6 mg/dL (8.5-10.1); CREATININE 3.7 mg/dL (0.7-1.3); PHOSPHORUS 3.4 mg/dL (2.6-4.7); POTASSIUM 4.3 mmol/L (3.5-5.1)
--- NOTE | 2021-03-17 06:10 | NUR ---
ASSUMED CARE AT 1900 OF 03/16. PATIENT IS A&O TO SELF AND EXHIBITING CONFUSION, FARRELL TO DD, DRAINING YELLOW URINE. RIGHT UPPER ARM IV WAS DISCONTINUED AT HS, DUE TO LEAKAGE. 20 GUAGE CATHETER REMOVED FROM R UPPER ARM, CANNULA INTACT. PRESSURE APPLIED WITH GAUZE AT INSERTION SITE, NO SIGNIFICANT BLOOD LOSS NOTED. NEW IV SITE ESTABLISHED ON RIGHT WRIST, FLUIDS CURRENTLY RUNNING AT 80ML/HR. ORAL MEDS ADMINISTERED ORDERED, PATIENT TOLERATED TAKING MEDS WHOLE WITH THIN LIQUIDS. PATIENT IS NOT USING CALL LIGHT TO CALL FOR HELP, DURING HOURLY ROUNDING PATIENT WAS FOUND TRYING TO GET OUT OF BED. PATIENT REPORTED HE WANTS TO US THE BATHROOM, TRANSFERED TO BATHROOM VIA W/C. MODERATE ASSIST OF 1 USING GB TO PIVOT IN AND OUT OF W/C. PATIENT ONLY SMEAR THE INCONTENANCE PAD IN BED, AND HAD NO BM WHILE ON TOILET. TRANSFERED BACK INTO BED, SLEPT FOR APPROX. 4HOURS. BED ALARM ON, CALL LIGHT WITHIN REACH AND WILL CONTINUE TO MONITOR.
[2021-03-17 08:00] VITALS: BP 114/54
--- NOTE | 2021-03-17 17:35 | NUR ---
ASSUMED CARE OF PT THIS MORNING AT 0700. PT IS A/OX2 WITH CONFUSION. PT SEEMS TO BE GETTING BETTER ACCORDING TO HIS DAUGHTER. PT HAS SEVERAL WOUNDS THAT HAVE BEEN RE-DRESSED THIS AFTERNOON. ALL WOUNDS ARE LOOKING VERY CLEAN AND HEALING NICELY. ASSESSMENTS ARE CHARTED AND OTHERWISE UNREMARKABLE. IV IN RIGHT HAND WITH D51/2NS AT 80ML/HR.CALL LIGHT AND OTHER NEEDS ARE PLACED WITHIN REACH. MEDS AND TX GIVEN NEEDED AND SCHEDULED. CONTINUED TO MONITOR AND UPDATE.
[2021-03-17 20:40] VITALS: BP 143/60
--- NOTE | 2021-03-18 04:56 | NUR ---
ASSUMED CARE AT 1900 OF 03/17. PATIENT IS A&O TO SELF, NO AGITATION NOTED, DENIES PAIN OR SOB. IV FLUID D5& 0.45NS RUNNING AT 80ML/HR, IV SITE ON RIGHT WRIST HAS NO S/S OF INFECTION OR INFLITRATION. FARRELL TO DD, YELLOW URINE NOTED IN DRAINAGE BAG. PRAFO BOOTS ON WHILE IN BED. ALL WOUND DRESSING ARE CDI. PATIENT HAS BEEN SLEEPING DURING HOURLY ROUNDINGS. BED ALARM ON AND CALL LIGHT W/IN REACH. WILL CONTINUE TO MONITOR.
[2021-03-18 05:34] LABS: HEMATOCRIT 32.2 % (42.0-52.0); HEMOGLOBIN 10.9 gm/dL (14.0-18.0); MCH 28.6 pg (26.0-34.0); MCHC 33.8 g/dL (28.0-37.0); MCV 84.6 fL (80.0-100.0); RBC 3.8 mil/uL (4.50-6.00); RDW 15.6 % (10.5-14.5); WBC 7.1 thou/uL (4.0-11.0)
[2021-03-18 05:48] LABS: ALBUMIN 2.5 g/dL (3.4-5.0); CALCIUM 8.4 mg/dL (8.5-10.1); CREATININE 3.9 mg/dL (0.7-1.3); PHOSPHORUS 4.6 mg/dL (2.6-4.7); POTASSIUM 4.5 mmol/L (3.5-5.1)
--- NOTE | 2021-03-18 07:50 | NUR ---
ASSUMED CARE AT 0700. PATIENT IS ALERT AND ORIENTED TO SELF. PATIENT LEES'S, MIND READER ARE EQUAL. LUNGS ARE CLEAR AND DEMINISHED. ABD IS SOFT WITH BSX4. LORIET HAS FARRELL TO DD, DRAINING NURIS COLORED URINE. FALL AND SAFETY PROTOCOLS IN PLACE. DENIES C/O PAIN AT THIS TIME. CONTINUES TO PROGRESS SLOWLY TOWARDS D/C GOALS. PATIENT HAS WOUNDS TO HIS HEAD , AND SHOULDERS THAT ARE OPEN TO AIR AND CONTINUE TO HEAL. PATIENT HAS WOUND TO LEFT UPPER ARM. DRESSING IS DRY AND INTACT. PATIENT HAS OPTIFORM TO HIS HIPS. HIS TOES ARE OPEN TO AIR. PATIENT HAS IV D5 1/2 NS AT 80 CC/HR IN HIS RIGHT WRIST. WILL CONTINUE TO MONITER.
--- NOTE | 2021-03-18 14:15 | NUR ---
Team meeting, recommendation; On IV fluids and IV ABT. Will daughters be able to provide some physical assist? Daughter to be encouraged to not visit during therapy time to allow him to be able to work with therapy and listen to instruction . dc 16th with 24hr assistance, HH ( pt, ot, st, nursing and sw).
[2021-03-18 20:00] VITALS: BP 172/76
--- NOTE | 2021-03-19 04:03 | NUR ---
ASSUMED CARE OF PT AT 1915 ON 03/18/21. PT IS A&O TO SELF & PLACE. PT WAS TEARY & CRYING WHILE DAUGHTER WAS AT BEDSIDE. PT HAS MULTIPLE WOUNDS. ALL DRSG C/D/I. PT REPORTED PAIN ONLY IN RLE. DAUGHTER REQUESTED TRAMADOL FOR THE PT, IN WHICH WAS ORDERED. PT REPORTED DECREASED PAIN UPON REASSESSMENT & HAS BEEN RESTING COMFORTABLY IN BED. DAUGHTER HAS CALLED 3X TO CHECK ON PT SINCE LEAVING AT 2100. PT IS TURNED Q2H. HEELS ELEVATED.PT IS UP WITH 1-2 MOD ASSIST, GB, WALKER TO BSC. FALL PRECAUTIONS & HOURLY ROUNDING CONTINUED THIS SHIFT. LABS & VITALS REVIEWED. PT IS CURRENTLY IN BED. ASLEEP. CALL LIGHT WITHIN REACH. WILL CONTINUE TO MONITOR.
[2021-03-19 05:46] LABS: ALBUMIN 2.4 g/dL (3.4-5.0); CALCIUM 8.3 mg/dL (8.5-10.1); CREATININE 3.8 mg/dL (0.7-1.3); PHOSPHORUS 4.5 mg/dL (2.5-4.9); POTASSIUM 4.5 mmol/L (3.5-5.1)
[2021-03-19 08:00] VITALS: BP 148/68
--- NOTE | 2021-03-19 09:35 | NUR ---
Cm visited with daughter Ijeoma and domo at bedside, both agree with dcp. list hh choice provided. Ijeoma wanted spiritual care to notarize dpoa paperwork and domo verbalized he wanted Ijeoma as one to make decision for him if he is unable to. bedside nurse to call spiritual care or supervisor [employer] to see if have notary in house or might have to wait till tomorrow. Thank you for assist.
--- NOTE | 2021-03-19 11:25 | NUR ---
ASSUMED CARE AT 0700. PATIENT IS ALERT AND ORIENTED X1-2. PATIENT LEES'S, CONFERENCE MANAGER ARE EQUAL. LUNGS ARE DEMINISHED. PATIENT CONTINUES ON RESPIRATORY TX. I.S. ENCOURAGED. ABD IS SOFT WITH BSX4. LAXATIVE GIVEN. PATIENT HAD LARGE BM TODAY. FARRELL TO DD, DRAINING NURIS COLORED URINE. PATIENT HAS IV OF D5 1/2NS INFUSING AT 80 CC/HR PER RIGHT WRIST AREA. IV SITE WITHOUT REDNESS OR SWELLING. PATIENT HAS WOUNDS TO HIS HEAD, AND SHOULDERS THAT ARE OPEN TO AIR. PATIENT HAS LEFT ABD WOUND, LEFT GROIN WOUND, RIGHT HIP WOUND , RIGHT THIGH WOUND AND RIGHT FOOT THAT IS PAINTED WITH BETADINE. DRESSINGS CHANGED ACCORDING TO PROTOCOLS. UP IN W/C WITH THERAPY. FALL AND SAFETY PROTOCOLS IN PLACE. C/O WOUND SITE PAIN. MEDICATED WITH SCED PAIN MED. CONTINUES TO PROGRESS SLOWLY TOWARDS D/C GOALS. WILL CONTINUE TO MONITER.
--- NOTE | 2021-03-19 13:10 | NUR ---
WOUND CARE F/U; HERE TODAY ASSESSING THE LOW AIRLOSS PUMP AND ITS FUNTIONALITY. THE PUMP IS ON AN IN USE TO THE CORRECT SETTING. THE PATIENT TODAY IS A LITTLE CONFUSED. THE DAUGHTER SAYS HER DAD IS HARDLY EATING ANYTHING. THE PATIENT SAYS HE IS NOT HUNGERY. IM TOLD A PEG TUBE HAS BEEN SUGGESTED. THE LOW AIRLOSS PUMP IS ON THE BED AND FUNCTIONING. MORE DRESSING WERE REQUESTED. DISCUSSED WITH MAHENDRA RN AND ANA PAULA CONTENT ADMINISTRATOR AND SHE WILL ORDER A STRICT CALORIE COUNT.
--- NOTE | 2021-03-19 13:24 | NUR ---
Nutrition: Extended poor oral intake/malnutrition. Outside food encouraged. RD starting calorie count. RECOMMEND: 1. Consider appetite stimulant 2. Consider change IVFS to Clinimix PPN 3. Consider liberalize diet to regular
--- NOTE | 2021-03-19 15:50 | PLAN ---
[facility] [place] [address] REHAB UNIT PLAN OF CARE Name: EMILY DELVALLE Room #: 516-1 ADM IN M.R.#: [id number] Admission: 03/07/21 Attend Phys: Martinez Aburto MD Discharge: Date of : 40 Report #: [id number] THIS REPORT FOR: cc: Rosa Mullins Stefany RNP Smithson, David G. MD ~ DOC #: [id number] Martinez Aburto MD DATE OF SERVICE: 03/10/2021 PROGRESS NOTE AND OVERALL PLAN OF CARE HISTORY OF PRESENT ILLNESS: The patient was seen back today in followup. He is in no distress. He looks overall considerably brighter to me. Discussed with Nephrology and his renal function is gradually declining. He follows basic 1-step commands. His daughter is currently feeding him and I discussed how in rehabilitation we are going to want to have the patient increase more and more his own independence. Dressing of upper body is max assist. Functionally, he is noted to refuse physical therapy yesterday. I discussed with he and the daughter the importance of working in therapies and he appeared amenable today. Cognition is noted to be severe with memory severe. ASSESSMENT: An 80-year-old male with the following problem list: 1. Toxic metabolic encephalopathy. 2. Medical complexity with generalized debilitation. 3. Acute rhabdomyolysis, status post fall. 4. Sepsis Enterococcus bacteremia. 5. Acute renal insufficiency, superimposed on chronic kidney disease, acute tubular necrosis, hyperkalemia. 6. Electrolyte abnormalities. 7. Hypertension. 8. Elevated troponin with non-ST elevation myocardial infarction. 9. Coronary artery disease. 10. Severe sunburns, status post fall prior to admission, hips back, legs, lips. Wound care has been involved. PLAN: The overall plan of care is based on the pre-admit screen and information garnered from therapy assessments. 1. Estimated length of stay is probably 14-21 days. 2. Medical prognosis is reasonably good. 3. Anticipated interventions includes the interdisciplinary acute inpatient rehabilitation program. 4. Anticipated functional outcomes would be for the patient to become modified independent with transfers, mobility and ADLs and to improve as far as cognition, so that he can return back to the home setting with increased care from family. [address] [address] REHAB UNIT PLAN OF CARE Name: MOOKEMILY Room #: 516-1 ADM IN .R.#: [id number] Admission: 03/07/21 Attend Phys: Martinez Aburto MD Discharge: Date of : 40 Report #: [id number] 5. Discharge destination would be back home. Will likely need to stay with one of his daughters or have one of the daughters stayed with him as was previously discussed. 6. Expected therapy by discipline includes PT, OT and speech 1 hour per day each 5 days a week throughout the duration of the acute inpatient rehabilitation stay. ADDENDUM: The patient's prognosis for significant practical improvement within a reasonable period of time appears good. Given the patient's complex medical condition and risk of further medical complication, rehabilitation services cannot be safely provided at a lower level of care such as a correction facility. Martinez Aburto MD DGS <ELECTRONICALLY SIGNED> By: Martinez Aburto MD 03/19/21 [id number] Martinez Aburto MD /nt
[2021-03-19 19:25] VITALS: BP 152/73
[2021-03-20 05:55] LABS: ALBUMIN 2.4 g/dL (3.4-5.0); CALCIUM 8.1 mg/dL (8.5-10.1); CREATININE 3.4 mg/dL (0.7-1.3); PHOSPHORUS 4.5 mg/dL (2.5-4.9); POTASSIUM 4.8 mmol/L (3.5-5.1)
--- NOTE | 2021-03-20 07:46 | NUR ---
ASSUMED CARE AT 1900 OF 03/19. PATIENT IS A&O TO SELF, CONFUSION NOTED. FARRELL TO DD, DARK YELLOW URINE NOTED IN DRAINAGE BAG. PATIENT CONTINUES ON IV FLUIDS OF D5 & 1/2NS, RUNNING AT 80ML/HR. RIGHT WRIST IV SITE HAS NO S/S OF INFECTION OR INFILTRATION, PATIENT DENIES PAIN AROUND THE IV SITE. PATIENT HAS BEEN COMPLIANT OF ALL MEDICATIONS AND TREATMENTS, RECEIVED THE THIRD DOSE OF ORAL ABX DURING THIS SHIFT. NO S/S OF ADVERSE REACTION NOTED. ALL WOUND DRESSINGS ARE IN PLACE AND INTACT DURING SHIFT. PRAFO BOOTS ON BLE WHILE IN BED. BED ALARM ON AND CALL LIGHT WITHIN REACH. NO CONCERNS AT THIS TIME, WILL CONTINUE TO MONITOR.
[2021-03-20 08:00] VITALS: BP 147/81
--- NOTE | 2021-03-20 09:02 | NUR ---
PT LYING IN BED THIS AM, DTR ASHLEY AT BEDSIDE TRYING TO GET HIM TO EAT. PT REFUSED TO EAT. PT STATED HE HAS NO APPETITE. DTR STATED HE HASN'T ATE SINCE LAST . PT DOES TAKE DRINKS OF ENSURE WITH MEDS. PT LBM YESTERDAY. PT HAS FARRELL TO DD FOR RETENTION. PT HAS IV TO RT WRIST WITH FLUIDS RUNNING. PT ON CALORIE COUNT UNTIL 03/21.
--- NOTE | 2021-03-20 12:22 | NUR ---
FAMILY BROUGHT IN A HALF SANDWHICH FOR HIM TO EAT. PT DOES HAVE ENSURE DRINK. PT STILL SAYING HE IS NOT HUNGRY.
--- NOTE | 2021-03-20 14:40 | NUR ---
PT REFUSING TO WORK WITH THERAPY AT THIS TIME. PT WAS ASLEEP IN BED. DTRS ARE AT BEDSIDE. GOING TO TAKE SAMPLE FOR URINE COLLECTION, DTR STATED WHEN WE DO DRESSING CHANGES CAN GET URINE SAMPLE AT THAT TIME. PT IV SITE IS RED, SLIGHTLY SWOLLEN AND PAINFUL TO TOUCH.
--- NOTE | 2021-03-20 17:00 | NUR ---
PT IS EATING SOME DINNER WITHOUT BEING TOLD BY DTR ASHLEY. PT DID EAT SOME MASHED POTATOES AND A LITTLE OF TURKEY. PT IV SITE TO RT WRIST IS PAINFUL, SWOLLEN AND RED. IV TEAM CALLED TO ACCESS SITE.
[2021-03-20 18:04] LABS: URINE BILIRUBIN NEGATIVE (Negative); URINE BLOOD 1+ (Negative); URINE CLARITY CLEAR; URINE COLOR YELLOW; URINE GLUCOSE-RANDOM* NEGATIVE (Negative); URINE KETONES NEGATIVE (Negative); URINE PROTEIN (DIPSTICK) TRACE (Negative); URINE SPECIFIC GRAVITY 1.015 (1.005-1.035); URINE UROBILINOGEN 0.2 E.U./dl (0.2-1.0)
[2021-03-20 18:05] LABS: URINE LEUKOCYTES-REFLEX 3+ (Negative); URINE NITRITE-REFLEX POSITIVE (Negative)
[2021-03-20 18:20] LABS: SQUAMOUS 0-3 Few /LPF (0-3)
[2021-03-20 18:21] LABS: CASTS None Seen /LPF (None Seen)
[2021-03-20 18:22] LABS: URINE RBC 1-2 Rare /HPF (NONE SEEN)
[2021-03-20 18:23] LABS: BACTERIA-REFLEX 1-9 Few /HPF (None Seen); CRYSTALS None Seen /LPF (None Seen); YEAST-REFLEX Present (None Seen)
[2021-03-20 20:00] VITALS: BP 155/62
--- NOTE | 2021-03-20 20:00 | NUR ---
PT HAS 20 G TO RT FA FROM IV NURSE. RESTARTED FLUIDS AT THIS TIME. ASHLEY AT BEDSIDE.
--- NOTE | 2021-03-21 00:53 | NUR ---
PT ALERT AND ORIENTED X 1, CONFUSED. IV INFUSING ORDERED. FARRELL PATENT DRAINING YELLOW URINE. PT DRANK SOME ENSURE WITH MEDS AT HS. PT REFUSED TYLENOL AT MIDNIGHT. STATED HE DIDN'T NEED IT. PT DENIES PAIN OR DISCOMFORT. BED ALARM ON FOR SAFETY. PT APPEARS TO BE SLEEPING AT INTERVALS. CHECKED ON HOURLY ROUNDS.
[2021-03-21 06:23] LABS: HEMATOCRIT 31.6 % (42.0-52.0); HEMOGLOBIN 10.7 gm/dL (14.0-18.0); MCH 28.5 pg (26.0-34.0); MCHC 33.9 g/dL (28.0-37.0); MCV 84.1 fL (80.0-100.0); RBC 3.76 mil/uL (4.50-6.00); RDW 15.2 % (10.5-14.5); WBC 6.4 thou/uL (4.0-11.0)
[2021-03-21 06:41] LABS: ALBUMIN 2.5 g/dL (3.4-5.0); CALCIUM 8.4 mg/dL (8.5-10.1); CREATININE 3.5 mg/dL (0.7-1.3); PHOSPHORUS 4.5 mg/dL (2.5-4.9); POTASSIUM 4.8 mmol/L (3.5-5.1)
[2021-03-21 08:00] VITALS: BP 160/78
--- NOTE | 2021-03-21 08:06 | NUR ---
Cont. with discharge planning as needed. Anticipated dc on with hh ( pt, ot, st, nursing and sw). He will need FWW.
--- NOTE | 2021-03-21 08:30 | NUR ---
PT AWAKENED BY THERAPY UP TO W/C AND IN BATHROOM BRUSHING HIS TEETH. OT WANTED IV SL IN ORDER TO GET SHIRT OFF OF HIM. PT STARTED TAKING TAPE OFF IV SITE AND WANTING TO TAKE IV OUT. PT SAYING I WILL DO IT IF I WANT. THIS RESEARCH EPIDEMIOLOGIST STATED THAT HE IS GETTING BETTER DUE TO THE FLUIDS AND ABX AND IT WAS HIS DECISION TO TAKE OUT IV, NOT BENEFICIAL FOR HIM TO TAKE IT OUT. THIS RESEARCH EPIDEMIOLOGIST WRAPPED HIS RT ARM WITH COBAN TO DETURE FROM IV BEING PULLED. THE PT CALLED THIS PLACE CRAZY AND THAT WE WAS INSAIN AND SAID TO THIS RESEARCH EPIDEMIOLOGIST TO GO TO [facility].
--- NOTE | 2021-03-21 09:37 | NUR ---
PT TOOK MEDS WITH ENSURE DRINK AT THIS TIME. PT UP IN W/C. PT IS NOT TRYING TO TAKE OUT IV AT THIS TIME. COBLY IS OFF HIS IV ARM.
--- NOTE | 2021-03-21 12:23 | NUR ---
Nutrition: Calorie count results: Day 1 pt met 21% kcal needs, 46% protein needs, day 2 pt met 24% kcal needs, 21% protein needs. Prolonged very poor oral intake despite all attempts to improve including encouragement of outside food. Likely plan for PEG wednesday-. In the meantime, REC change IVFs to Clinimix PPN til PEG ready to use. When tube feeds start, REC Jevity 1.5 at 85 mL/hr x 12 hrs overnight (7p-7a) to meet approximately 75% of needs. Can transition to bolus regimen prior to D/C.
--- NOTE | 2021-03-21 12:30 | NUR ---
PT SITTING IN W/C. PT WANTING TO GO BACK TO BED. PT ENCOURAGED TO SIT IN RECLINER. PT YELLED AT NURSE AND SAID I WILL DO THINGS MY WAY, PT ASKING IF HE IS REFUSING PHYSICAL THERAPY LATER, PT STATED I DIDN'T SAY THAT. PT GETS SHORT TEMPERED WITH STAFF AND FAMILY AT TIMES. PT DID EAT A GRANOLA BAR. PT TRANSFERED TO RECLINER X1 ASSIST. PT TOLERATED WELL.
--- NOTE | 2021-03-21 13:33 | NUR ---
HALDOL 0.5MG IV GIVEN FOR INCREASED AGGITATION YELLING AT THE YOUNGEST DTR CALLING HER STUPID. THERAPY WAS IN ROOM WORKING WITH HIM AND GOT UPSET OF ACTIONS OF VERBAL ABUSE TO HIS DTR. THE DTR LEFT ROOM AND WAS UPSET AND SAID WE ARE SEEING HIS TRUE NATURE. SHE STATED HE WAS VERBAL ABUSIVE TO THE FAMILY.
--- NOTE | 2021-03-21 17:24 | NUR ---
PT BACK TO BED AND EATING A BURGER AND ALSO DRINKING WATER. PT HAS ATE WELL TODAY FOR LUNCH AND DINNER.
--- NOTE | 2021-03-21 18:00 | NUR ---
DRESSING CHANGED PERFORMED TO LEFT ABD, LEFT GROIN/THIGH, RT UPPER THIGH, AND RT LATERAL THIGH. PT TOLERATED WELL, ASHLEY ACEVEDO IS HERE AT THIS TIME ASSISTING WITH DRESSING CHANGES. PT PULLED UP IN BED. Z-GUARD IS APPLIED TO SCROTUM AND ALSO BUTTOCKS, NO SIGNS OF SKIN BREAKDOWN TO BUTTOCKS.
[2021-03-21 19:48] VITALS: BP 151/62
--- NOTE | 2021-03-22 02:26 | NUR ---
ASSUMED CARE APPROX 0 EVENING 03/21. PT LYING IN BED SLEEPING AT CHANGE OF SHIFT. DAUGHTER AT BEDSIDE. FARRELL TO DD WITH CLEAR, YELLOW URINE TO BAG. PT AWOKE TO TAKE HS MEDS WITH ENSURE TOLERATING WELL. IVF INFUSING TO RIGHT FOREARM IV SITE WITHOUT DIFFICULTY. PT APPEARS TO BE SLEEPING SOUNDLY. BED ALARM ON AND CALL LIGHT IN REACH. WILL CONTINUE TO MONITOR.
[2021-03-22 05:29] LABS: ALBUMIN 2.6 g/dL (3.4-5.0); CALCIUM 8.6 mg/dL (8.5-10.1); CREATININE 3.8 mg/dL (0.7-1.3); PHOSPHORUS 3.8 mg/dL (2.6-4.7); POTASSIUM 5.6 mmol/L (3.5-5.1)
--- NOTE | 2021-03-22 11:40 | NUR ---
IV TEAM RN CONSULTED FOR PIV PLACEMENT. PT'S DAUGHTER AT BEDSIDE AT STATES THAT PT HAS PINK BAND TO LEFT ARM DUE TO ELBOW AREA BURN AND INTERMITTENT SWELLING OF ARM. RIGHT ARM APPEARS MORE SWOLLEN THAN LEFT. US ASSESSMENT OF RIGHT ARM NOTES RIGHT MID FOREARM CEPHALIC, PROXIMAL PAST AC AND TO UPPER ARM, IS THROMBOSED. LEFT FOREARM CEPHALIC IS PATENT. THIS RN, DISCUSSED WITH BOTH PT DAUGHTER AND NURSE, THAT LEFT FOREARM MORE APPROPRIATE FOR PIV. RIGHT ARM SHOULD HAVE OFFICIAL US ASSESSMENT. DR DUEÑAS'S NOTES FROM TODAY DO NOT MENTION HOW LONG PT TO BE ON IV ABX. DISCUSSED THAT MAY HAVE TO CONSIDER PICC OR CVL.
[2021-03-22 12:43] LABS: ABSOLUTE NEUTROPHILS 6.9 thou/uL (1.4-8.2); BASOPHILS 0.9 % (0.0-2.0); EOSINOPHILS 2.3 % (0.0-3.0); HEMATOCRIT 34.7 % (42.0-52.0); HEMOGLOBIN 11.5 gm/dL (14.0-18.0); LYMPHOCYTES 16.6 % (24.0-44.0); MCH 28.3 pg (26.0-34.0); MCHC 33.2 g/dL (28.0-37.0); MCV 85.3 fL (80.0-100.0); MONOCYTES 7.9 % (1.0-8.0); PLATELET COUNT 255 thou/uL (150-400); POLYS 72.3 % (36.0-66.0); RBC 4.07 mil/uL (4.50-6.00); RDW 15.8 % (10.5-14.5); WBC 9.5 thou/uL (4.0-11.0)
[2021-03-22 19:35] VITALS: BP 151/62
[2021-03-22 21:45] VITALS: BP 152/64
[2021-03-23 00:13] VITALS: BP 153/84
--- NOTE | 2021-03-23 01:53 | NUR ---
PT ASSESSMENT COMPLETED. BP ELEVATED WHEN PT WAS ANXIOUS EARLY DURING THE SHIFT. RECHECKED BP AND WAS BASELINE FOR PT. PT FEELING GOOD THIS EVENING. PT HAD A LARGE BM EARLY DURING SHIFT. ASST WITH REPOSITION FOR COMFORT. ZGUARD APPLIED TO BOTTOM AND PT TURNED TO PREVENT PRESSURE. MAYRA BOOTS ON PT FEET. FALL PRECAUTIONS IN PLACE. PTS DAUGHTER ATTEMPTED TO CONTACT RN THIS EVENING BY PHONE. RETURNED CALL BUT DAUGHTER DID NOT ANSWER. PT SLEEPING WELL AT THIS TIME AND APPEARS COMFORTABLE. WILL CONTINUE TO MONITOR FREQUENTLY.
[2021-03-23 04:35] LABS: ALBUMIN 2.7 g/dL (3.4-5.0); CALCIUM 8.7 mg/dL (8.5-10.1); CREATININE 3.9 mg/dL (0.7-1.3); PHOSPHORUS 3.8 mg/dL (2.5-4.9)
[2021-03-23 04:50] LABS: POTASSIUM 4.6 mmol/L (3.5-5.1)
[2021-03-23 07:15] VITALS: BP 153/84
--- NOTE | 2021-03-23 11:00 | NUR ---
ASSUMED CARE AT 0700. ALERT, DID NOT SLEEP LAST NIGHT. SEEMS AGITATED THIS MORNING, DAUGHTER YARELI AT BEDSIDE. PT REFUSED TO EAT. IV TEAM CAME IN AROUND [address] AN IV TO L FA, AND IVF RESTARTED AND FLUCONAZOLE GIVEN. PT MANAGED TO SLEEP IN BETWEEN HOURS AND SEEMS TO BE MORE CALMER AND COOPERATIVE. REQUESTED FOR ANTI ANXIETY MEDS PRIOR TO DRESSING CHANGES PER NURSING. PT REFUSED SC HEPARIN DESPITE TEACHING GIVEN BY NURSING PRIOR ORDERS RECEIVED TO HOLD MED. NEED FREQ CUING ABOUT EATING AND NUTRITION AND WOUND HEALING BUT PT NON COMPLIANT. SB GI TODAY, PLAN FOR PEG TUBE PLACEMENT TOMORROW, WILL BE NPO AT MIDNIGHT. CONSENT NOT SIGNED. WOUND CARE DONE TO WOUNDS. FARRELL INTACT AND DRAINING WELL.
[2021-03-23 19:44] VITALS: BP 173/83
--- NOTE | 2021-03-24 03:13 | NUR ---
Z-GUARD TO PINK BOTTOM, TOLERATING LYING ON LEFT SIDE WITH PILLOW SUPPORT. NPO SINCE MIDNIGHT, NOT OBSERVED TO BE AWAKE AT ANY TIME SINCE THEN. FARRELL TO DD, IV FLUIDS INFUSING
[2021-03-24 04:13] LABS: ABSOLUTE NEUTROPHILS 5.5 thou/uL (1.4-8.2); BASOPHILS 1.1 % (0.0-2.0); EOSINOPHILS 2.3 % (0.0-3.0); HEMOGLOBIN 11.8 gm/dL (14.0-18.0); LYMPHOCYTES 20.7 % (24.0-44.0); MCH 29.2 pg (26.0-34.0); MCHC 34.6 g/dL (28.0-37.0); MCV 84.5 fL (80.0-100.0); MONOCYTES 8.2 % (1.0-8.0); PLATELET COUNT 230 thou/uL (150-400); POLYS 67.7 % (36.0-66.0); RBC 4.02 mil/uL (4.50-6.00); RDW 15.2 % (10.5-14.5); WBC 8.1 thou/uL (4.0-11.0)
[2021-03-24 04:28] LABS: ALBUMIN 2.6 g/dL (3.4-5.0); CALCIUM 8.6 mg/dL (8.5-10.1); CREATININE 3.9 mg/dL (0.7-1.3); MAGNESIUM 2.4 mg/dL (1.8-2.4); PHOSPHORUS 4.8 mg/dL (2.5-4.9); POTASSIUM 4.8 mmol/L (3.5-5.1); TOTAL BILIRUBIN 0.4 mg/dL (0.2-1.0); TOTAL PROTEIN 6.9 g/dL (6.4-8.2)
[2021-03-24 08:00] VITALS: BP 150/74
--- NOTE | 2021-03-24 13:45 | NUR ---
ASSUMED CARE AT 0700. PT RESTING IN BED WITH NO COMPLAINS OF PAIN. HAS BEEN NPO SINCE MIDNIGHT WITH IVF RUNNING AT 80ML/HR. REPORT GIVEN TO GI NURSE AND TRANSPORTED TO GI LAB AT 1130. GI LAB CALLED AT 1331 AND INFORMED RN THAT PEG TUBE PLACEMENT IS POSTPONED DUE TO PT HAS TO BE OFF BLOOD THINNER FOR TOTAL 3 DAYS PRIOR PROCEDURE. LAST PLAVIX GIVEN WAS ON 03/23 AT 0935, HOLD ORDERS WAS PLACED LATER IN THE MORNING ON WEDNESDAY. FAMILY AWARE OF SITUATION AND IS AT BEDSIDE. PT IS AWAKE AND ALERT AND CONVERSING APPROPRIATELY WITH FAMILY AND NURSE. ATE HIS LUNCH BROUGHT FROM HOME AND DRANK HIS PROTEIN DRINK. HE APPEARS TO BE CALM AND COOPERATIVE. IVF INFUSING. FARRELL WITH VOIDING TRIAL INITIATED AND EDUCATED TO FAMILY. SPOKE TO TERESA DUONG WITH GI AND WILL PROB PLAN FOR PEG PLACEMENT ON WEDNESDAY.
[2021-03-24 19:58] VITALS: BP 150/90
--- NOTE | 2021-03-25 03:07 | NUR ---
ABLE TO TURN SELF TO SIDE WHEN DIRECTED. DOES NOT STAY OVER MORE THAN 30 DEGREES TO EITHER SIDE DUE TO BLISTERS ON BOTH HIPS. ALSO APPRECIATES HOB UP GREATER THAN 30 DEGREES TO HELP HIM BREATHE. WHEN HE IS TURNED SIDE TO SIDE, HE WAKES FOR BRIEF PERIODS AND GOES BACK TO SLEEP, STATES HE FEELS FINE AND DECLINED MIDNIGHT SCHEDULED TYLENOL. Z-GUARD TO MID-BUTTOCKS. DRESSINGS INTACT. FARRELL TO MERRILL, WILL BEGIN CLAMPING WHEN AWAKE
[2021-03-25 05:52] LABS: ALBUMIN 2.7 g/dL (3.4-5.0); CALCIUM 8.6 mg/dL (8.5-10.1); PHOSPHORUS 4.7 mg/dL (2.5-4.9); POTASSIUM 4.7 mmol/L (3.5-5.1)
[2021-03-25 08:00] VITALS: BP 176/91
--- NOTE | 2021-03-25 09:29 | NUR ---
Recommend change IVF to Clinimix PPN d/t prolonged poor intake <20% of needs. When PEG placed and ready for use, Recommend Jevity 1.5 @ 85ml/hr x 12 hours overnight (7p-7a) to provide >75% of needs. Can be transitioned to bolus regimen prior to d/c.
--- NOTE | 2021-03-25 10:48 | NUR ---
ASSUMED CARE AT 0700. PATIENT IS ALERT AND ORIENTED X2. PATIENT LEES'S, PATIENT HAS DVT IN RIGHT UPPER ARM. IV D5 1/2 NW INFUSING PER IMED AT 80 CC/HR. LUNGS ARE CLEAR. ABD IS SOFT WITH BSX4. FARRELL TO DD, DRIAINING NURIS COLORED URINE. UP IN W/C FOR THERAPY. APPETITE POOR. PLAN GT PLACEMENT WED OR FRI. ENCOURAGED PO FLUIDS. IV SITE IN THE LEFT FORARM WITHOUT REDNESS OR SWELLING. FALL AND SAFETY PROTOCOLS IN PLACE. C/O PAIN IN HIS ABD, RIGHT HIP , LEFT UPPER ARM. CONTINUES TO PROGRESS SLOWLY TOWARDS D/C GOALS. WILL CONTINUE TO MONITER. DAUGHTER AT BEDSIDE.
--- NOTE | 2021-03-25 13:37 | NUR ---
Team meeting, Right arm dvt as of Wednesday. Peg tube tere for tomorrow. Wound care. domo has poor insight. He will need 24hr assistance in home. HH ( pt, ot, st, nursing, sw ) vs skilled rehab dc .
--- NOTE | 2021-03-25 17:35 | NUR ---
CALL HUMBERTO IF UNABLE TO REACH ADDIS [phone].
[2021-03-25 20:15] VITALS: BP 131/78
--- NOTE | 2021-03-25 23:38 | NUR ---
PT ALERT AND ORIENTED X 1. FARRELL PATENT DRAINING YELLOW URINE WITH SEDIMENT. IV INFUSING ORDERED. PT TOOK HS MEDS WITH WATER WITHOUT DIFFICULTY. PT TO BE NPO AFTER MIDNIGHT FOR PEG TUBE INSERTION IN AM. PT DENIES PAIN OR DISCOMFORT. BED ALARM ON FOR SAFETY. PT APPEARS TO BE SLEEPING ON HOURLY ROUNDS.
[2021-03-26 06:06] LABS: ALBUMIN 2.6 g/dL (3.4-5.0); CALCIUM 8.3 mg/dL (8.5-10.1); CREATININE 3.8 mg/dL (0.7-1.3); PHOSPHORUS 4.3 mg/dL (2.5-4.9); POTASSIUM 4.4 mmol/L (3.5-5.1)
[2021-03-26 07:15] VITALS: BP 164/101
--- NOTE | 2021-03-26 13:04 | NUR ---
ASSUMED CARE AT 0700. PATIENT IS ALERT AND ORIENTED TO SELF. CLIFFORD LEES'S. MANAGER CLINICAL ARE EQUAL. PATIENT NPO FOR PEG TUBE PLACEMENT. IVF D5 1/2NS INFUSING AT 80CC/HR. PER IV IN HIS LEFT FORARM. LUNGS ARE CLEAR AND DEMINISHED. ABD IS SOFT WITH BSX4. PATIENT HAS FARRELL TO DD, DRAINING NURIS COLORED URINE. WOUNDS COVERED BY DRESSINGS AND ARE INTACT. WILL ADDRESS WHEN THE PATIENT RETURNS FROM G.I. LAB. FAMILY AT BEDSIDE. WILL CONTINUE TO MONITER.
--- NOTE | 2021-03-26 14:02 | NUR ---
Pt getting peg placed today. Followup call placed to dtr Ijeoma to see if family has discussed the team conference recommendations and determine whether they can do 24hr care in the home with hh or SNF referrals need to be initiated for rina 04/01/21. She is at work and will call me later this afternoon to discuss further. She is asking for extended rehab time to allow them more time to decide which direction to go.
[2021-03-26 20:07] VITALS: BP 154/79
--- NOTE | 2021-03-27 04:36 | NUR ---
ASSUMED CARE AT 1900 OF 03/26. PATIENT IS A&O TO SELF, CONFUSION NOTED. FARRELL IN PLACE, DRAINNING YELLOW URINE. IV FLUIDS (D5 & 0.45%NS) RUNNING AT 80CC/HR, IN LEFT FOREARM, IV SITE HAS NO S/S OF INFECTION OR INFILTRATION. PATIENT IS ON 2L OF 02 VIA NC POST PEG TUBE PLACEMENT FOR 24HOURS, PER ANESTHESIOLOGIST. PATIENT REQUIRES REMINDER TO KEEP NC ON, DURING RANDOM CHECKS, O2Sat REMAINS ABOVE 92%. PEG TUBE DRESSING IS CDI, ABDOMINAL BINDER IN PLACE. PATIENT DENIES NAUSEA AND PAIN. HAS BEEN SLEEPING THROUGHOUT THE NIGHT. PRAFO BOOTS IN PLACE WHILE IN BED. TOLERATED HS MEDICATIONS ORALLY, AND HAS SMALL SNACK IN THE EVENING FROM DAUGHTER. WILL CONTINUE TO MONITOR.
[2021-03-27 08:00] VITALS: BP 161/75
--- NOTE | 2021-03-27 12:10 | NUR ---
AMINATA spoke w/ Dayanara at [facility] [phone] to confirm referral. Dayanara was able to confirm receipt of referral and [facility] office is reviewing for start of care. AMINATA also shared w/ Dayanara that [facility] is following for home care needs. W/U in progress
--- NOTE | 2021-03-27 19:48 | NUR ---
ASSUMED CARE AT 0700. PT A/O X 3-4 , FUSSY AND REFUSING SOME TREATMENTS AND THERAPIES TODAY. DTR HUMBERTO AT BEDSIDE MOST OF THE DAY, PLESANT AND WANTING TO LEARN WOUND CARES AND TREATMENTS WELL. UPDATED ON POC AND QUESTIONS ANSWERED. PT NOT TAKING MUCH PO TODAY. POOR APPETITE. FARRELL OUT AT 0600 PER HS NURSE, VOIDED 500 OUT TODAY, NO RESIDUAL GREATER THAN 400 THUS FAR. TUBE FEEDS STARTED THIS EVENING AT 30ML/HR. DTR ASHLEY UPDATED AT BEDSIDE. PRN NORCO ADDED FOR POST OP ABD PAIN THIS AFTERNOON, PT HAD SIGNIFCANT RELIEF AND DID NOT HAVE PAIN WITH WOUND CARES. PT RESTED WELL THIS AFTERNOON WELL. REPORT GIVEN TO MARQUITA WELCH FOR CARDIOVASCULAR SURGEON.
[2021-03-27 20:18] VITALS: BP 136/65
--- NOTE | 2021-03-27 22:10 | NUR ---
ASSUMED CARE OF PT AT 1925. PT IS SLEEPING. IS ORIENTED TO SELF & SITUATION. IS ON ROOM AIR. DENIES PAIN AT THIS TIME. DRSG TO WOUNDS C/D/I. WAS CHANGED BY DAY NURSE. IV D5 1/2 NS CONTINUE TO INFUSE. TUBE FEEDING RUNNING AT 30 ML/HR WITH GOAL OF 70 ML/HR. PT IS UP WITH 1 ASSIST, GB, STAND PIVOT TO W/C. FALL PRECAUTIONS & HOURLY ROUNDING CONTINUED THIS SHIFT. PT IS STABLE. LABS & VITALS REVIEWED. DAUGHTER WAS AT BEDSIDE UNTIL 2099. SLEEPING AID REQUESTED BY DAUGHTER TO BE GIVEN BETWEEN [id number] TONIGHT TO ENSURE THAT PT WILL SLEEP THROUGHOUT THE NIGHT. PT IS TURNED Q2H. HEELS OFF LOADED. CALL LIGHT WITHIN REACH. WILL CONTINUE TO MONITOR.
[2021-03-28 07:15] VITALS: BP 153/85
--- NOTE | 2021-03-28 13:00 | NUR ---
ASSUMED CARE AT 0700. ALERT AND ORIENTATED X 2-3. AT TIMES CAN GET IRRITABLE AND AGITATED WITH CONSTANT QUESTIONING. PT EASILY CALMED DOWN AND FOLLOW SIMPLE INSTRUTIONS. TOLERATED NOC FEEDING WITH NO RESIDUAL. COMPLAINED OF ABDOMINAL PAIN AND TREATED WITH NORCO WITH GOOD RELIEF BUT AFTER COUPLE OF HOURS REPORTED GENERALIZED CRAMPING. ORDERS RECEIVED FOR TUMS AND MOM PRN. TERESA DUONG WITH GI ALSO NOTIFIED. PT HAD A MEDIUM SOFT STOOL TODAY. UP WITH MIN ASSIST FROM BED TO CHAIR. DIURESED. IVF IN PROGRESS. WOUND CARE DONE.
[2021-03-28 19:50] VITALS: BP 193/104
[2021-03-29 05:47] LABS: ABSOLUTE NEUTROPHILS 4.6 thou/uL (1.4-8.2); BASOPHILS 0.8 % (0.0-2.0); EOSINOPHILS 3.6 % (0.0-3.0); HEMATOCRIT 30.9 % (42.0-52.0); HEMOGLOBIN 10.6 gm/dL (14.0-18.0); LYMPHOCYTES 20.6 % (24.0-44.0); MCH 28.5 pg (26.0-34.0); MCHC 34.1 g/dL (28.0-37.0); MCV 83.6 fL (80.0-100.0); MONOCYTES 5.8 % (1.0-8.0); PLATELET COUNT 189 thou/uL (150-400); POLYS 69.2 % (36.0-66.0); RDW 15.4 % (10.5-14.5); WBC 6.6 thou/uL (4.0-11.0)
[2021-03-29 05:52] LABS: CALCIUM 8.5 mg/dL (8.5-10.1); MAGNESIUM 2.1 mg/dL (1.8-2.4); POTASSIUM 3.8 mmol/L (3.5-5.1)
--- NOTE | 2021-03-29 06:00 | NUR ---
ASSUMED CARE AT 1900 OF 03/28. PATIENT IS A&OX2. REPORTED ABDOMINAL PAIN AT HS, SCHEDULED TYLENOL WAS ADMINISTERED TO MANAGE PAIN. CONTINUES ON IV FLUIDS AT 80CC/HR. IV SITE DRESSING CDI, NO S/S OF INFECTION OR INFILTRATION NOTED. PRAFO BOOTS ON WHILE IN BED. CONTINUES TO BE ON Q2HR TURNS. PATIENT IS OFFERED ASSISTANCE TO GO AND USE THE BATHROOM, BUT CONTINUES TO REFUSE, AND STATES HE HAS SAID NO AND HE MEANS NO. ALSO, REFUSES ATTEMPS TO CHECK INCONTINENCE PAD. ALL WOUND DRESSINGS ARE IN PLACE AND INTACT. FEEDING VIA PEG TUBE WAS STARTED AT 2000, AT 40CC/HR. GASTRIC RESIDUAL VOLUME AT 0020 WAS 10CC, RATE INCREASES TO 50CC/HR. AT 0530 GASTRIC RESIDUAL VOLUME WAS RECHECKED AND IT WAS 20CC, RATE INCREASED TO 60CC/HR. GOAL TO REACH IS 70CC/HR. PATIENT IS TOLERATING FEEDINGS WELL. HEAD OF BEAD REMAINS ABOVE 30 DEGREES. WILL CONTINUE TO MONITOR.
--- NOTE | 2021-03-29 10:30 | NUR ---
ASSUMED CARE AT 0700. PATIENT IS ALERT AND ORIENTED X 1-2. PATIENT LEES'S, PAPERHANGER ARE EQUAL. LUNGS ARE DEMINISHED. ABD IS SOFT WITH BSX4. PATIENT HAS PEG TUBE IN HIS LEFT LOWER ABD. DRESSING IS DRY AND INTACT. PATIENT WAS INCONTINENT OF URINE X2. UP IN W/C FOR BREAKFAST. T.F. WAS STOPPED AT 0700. PATIENT WOULD NOT EAT ANY BREAKFAST. UP WITH ASSIST OF 1 WITH GAIT BELT, STAND PIVOT AND SIT IN W/C. CONTINUES ON D5 1/2 NS AT 80 CC/HR PER IV IN HIS LEFT FORARM. NO EDEMA OR SWELLING NOTED. WOUNDS DRESSED PER PROTOCOLS. FALL AND SAFETY PROTOCOLS IN PLACE. C/O ABD PAIN. MEDICATED WITH PRN PAIN MED. CONTINUES TO PROGRESS SLOWLY TOWARDS D/C GOALS. WILL CONTINUE TO MONITER. DAUGHTER AT BEDSIDE.
[2021-03-29 21:25] VITALS: BP 164/79
--- NOTE | 2021-03-30 06:14 | NUR ---
ASSUMED CARE AT 1900 OF 03/29. PATIENT IS A&O TO PERSON AND SITUATION. MILD ABDOMINAL PAIN, MANAGED WITH SCHEDULED TYLENOL. WOUND DRESSINGS ARE IN PLACE AND INTACT. REMAINGS ON IV FLUIDS, RUNNING AT 80CC/HR. IV SITE HAS NO S/S OF INFECTION OR INFILTRATION, IV LOCATED ON LEFT FOREARM, SLIGHT EDEMA NOTED IN LEFT HAND DUE TO PATIENT REMOVING ELEVATING PILLOW FROM UNDER UPPER EXTREMITY. PATIENT IS REMINDED LUE NEEDS TO REMAIN ELEVATED TO DECREASE EDEMA IN THAT ARM. PATIENT HAS PEG TUBE IN PLACE, DRESSING TO TUBE IS CDI. ADB IS SOFT TO PALPATION, BOWEL SOUNDS PRESENT IN ALL 4 QUANDRANTS. FEEDING WAS STARTED ON PREVIOUS SHIFT. FEED STARTED RUNNING AT 50CC/HR AT BEGINNING OF SHIFT, GASTRIC RESIDUAL VOLUME AT 2300 WAS 30CC, RESIDUAL RETURNED AND FLUSHED WITH 60CC OF WATER. RATE INCREASED TO 60CC/HR. AT 0300 GRV WAS 75CC, PATIENT REPORTED SOME ABDOMINAL DISCOMFORT DENIES NAUSEA. ABD REMAINS NON-DISTENDED. PATIENT IS REPOSITIONED AND FEED IS RESTARTED AT 60CC/HR. GOAL RATE IS 70CC/HR. WILL CONTINUE TO MONITOR.
--- NOTE | 2021-03-30 10:27 | NUR ---
ASSUMED CARE AT 0700. PATIENT IS ALERT AND ORIENTEDX 1-2. PATIENT LEES'S, CHIEF OF POLICE ARE EQUAL. LUNGS ARE DEMINISHED. ABD IS SOFT WITH BSX4. PATEINT HAS G.T. IN HIS LEFT ABD AREA. PATIENT GETS T.F. AT 60 CC/HR AT 7PM TO 7A.M. IV FLUIDS D/C'D. S.L. FLUSHED IN LEFT F.A. WOUNDS CHANGED ACCORDING TO PROTOCOLS. PATIENT IS INCONTINENT OF URINE. ENCOURAGE PO FLUIDS. FALL AND SAFETY PROTOCOLS IN PLACE. DENIES PAIN AT THIS TIME. CONTINUES TO PROGRESS VERY SLOWLY TOWARDS D/C GOALS. WILL CONTINUE TO MONITER.
[2021-03-30 13:53] VITALS: BP 194/106
[2021-03-30 18:52] VITALS: BP 184/84
--- NOTE | 2021-03-31 05:25 | NUR ---
ASSUMED CARE AT 1900 OF 03/30. PATIENT IS A&O TO SELF. DENIES PAIN OR SOB. MINIMAL ASSIST OF 1 USING GAITBELT TO PIVOT TRANSFER TO [facility]. IV SALINE LOCKED ON LEFT FOREARM. PEG TUBE DRESSING CDI, PATIENT DENIES NAUSEA OR DISCOMFORT. FEEDING STARTED ON PREVIOUS SHIFT. STARTING RATE AT 60CC/HR. AT 0000 GASTRIC RESIDUAL VOLUME WAS 60CC. RESIDUAL RETURNED, AND FLUSHED WITH 250CC OF WATER. PATIENT CONTINUES ON 250CC OF WATER FLUSH EVERY 6 HOURS. RATE WAS INCREASED TO 70CC/HR AFTER FLUSH, FEEDING RESUMED. NO DISCOMFORT REPORTED BY PATIENT. ABD IS NON-DISTENDED, BOWEL SOUNDS PRESENT IN ALL 4 QUADRANTS. WILL CONTINU E TO MONITOR.
[2021-03-31 06:16] LABS: HEMOGLOBIN 11.1 gm/dL (14.0-18.0); MCHC 34.6 g/dL (28.0-37.0); MCV 83.9 fL (80.0-100.0); RBC 3.82 mil/uL (4.50-6.00); RDW 15.2 % (10.5-14.5)
[2021-03-31 07:50] LABS: CALCIUM 9.5 mg/dL (8.5-10.1); POTASSIUM 4.3 mmol/L (3.5-5.1)
[2021-03-31 08:00] VITALS: BP 192/82
--- NOTE | 2021-03-31 11:13 | NUR ---
Anticipated D/C date 04/03. SW spoke w/ Unique [phone] at [facility] and informed that orders will be provided closer to date. W/U in progress. Lilian ALEXANDER following for home care
--- NOTE | 2021-03-31 13:32 | NUR ---
Nutrition: Tube feeds will change to Jevity 1.5 goal 60 mL/hr x 24 hrs due to minimal po intake, improvement in renal labs. Once pt tolerating goal, if po remains minimal, transition to bolus of 6 cartons jevity 1.5 daily.
--- NOTE | 2021-03-31 14:44 | NUR ---
ASSUMED PT CARE THIS AM. REMOVED PT IV SITE ON LFA PER PT FAMILY REQUEST. CHANGE TUBE FEEDING TO CONTINUOUSLY JEVITY 1.5 AT RATE 30. GOAL IS 60. PT HAD BM THIS MORNING AND HAS BEEN VOIDING. WATER FLUSHES EVERY Q6H. IN ADDITION, PT HAS REGUALR DIET ORDER. BUT STILL POOR APPETITE. PT REFUSING THERAPIES TODAY. PT IS CURRENTLY SLEEPING ON THE BED, BED ON THE LOWEST POSITION, SIDE RAILS UP, CALL LIGHT WITHIN REACH. WILL CONTINUE TO MONITOR PT. FOLLOW POC.
[2021-03-31 19:41] VITALS: BP 173/81
--- NOTE | 2021-04-01 02:26 | NUR ---
AWAKE AT MIDNIGHT, UP TO BSC WITH GAIT BELT, WALKER, AND MOD ASSIST FOR VOID AND SMALL BM. ABLE TO GET RIGHT BACK TO SLEEP. TOLERATING TUBE FEEDING AT 30 CC PER HOUR, NO RESIDUAL, INCREASED RATE TO 35 CC PER HOUR WITH GOAL OF 60 CC PER HOUR.
--- NOTE | 2021-04-01 10:48 | NUR ---
PT UP ON BSC AND HAD INCON. STOOL. PT FEEDING TUBE UNDER HIS LEG. THIS OIL WELL GUN PERFORATOR OPERATOR TRIED TO GET TUBE OUT FROM UNDER LEG AND HE YELLED TO STOP. THIS OIL WELL GUN PERFORATOR OPERATOR SAID NOT TO YELL. PT DTR HUMBERTO AT BEDSIDE. PT WANTED DOOR SHUT AND CURTAIN PULLED. CURTAIN WAS PULLED AND DOOR SHUT. PT SAID IS THIS BITCH GOING TO BE HELPING ME. HE SAID FOR THIS OIL WELL GUN PERFORATOR OPERATOR TO GET OUT OF HIS ROOM BECAUSE HE LAW HERE. DTR SAID THAT THIS OIL WELL GUN PERFORATOR OPERATOR HAS EVERY RIGHT TO BE HERE TO HELP, AND THERE IS LAWS HERE TO FOLLOW. HE STILL WANTED THIS OIL WELL GUN PERFORATOR OPERATOR OUT OF HIS ROOM. SENT THE GASTROENTEROLOGY MANAGER TO ASSIST WITH CLEAN UP.
--- NOTE | 2021-04-01 12:55 | NUR ---
WHEN GIVING PT HIS TYLENOL. NO SIGNS OF ANGER TOWARDS STAFF. PT DID EAT 100% OF PUDDING AND REALLY LIKED IT. PT DRINKING GINGERALE AT THIS TIME.
--- NOTE | 2021-04-01 13:59 | NUR ---
Team meeting, recommendation of safe is for skilled. At home he will needs 24hrs veterinarian laboratory animal care. will need hospital bed, wound care supplies, and wheelchair. Family will need to get bsc. Lilian Wagner ( pt, ot, st, sw nursing). DC 22
--- NOTE | 2021-04-01 14:30 | NUR ---
PT SLEEPING AT THIS TIME IN BED. DTR HUMBERTO AT BEDSIDE. PT TUBE FEEING INCREASED TO 50ML AT THIS TIME. WILL CHECK RESIDUAL WHEN PT AROUSES FROM SLEEP. PT HAS NOT COMPLAINED OF ANY PAIN OR NAUSEA THIS AM. PT HAS BEEN INCON. OF STOOL TODAY IN BED, UP X1 TO BSC.
--- NOTE | 2021-04-01 17:00 | NUR ---
ASHLEY ACEVEDO IS HERE AT THIS TIME. PT NEEDING DRESSING CHANGE. [place] UP [place] [facility] [place]. PT WAS ABLE TO USE WALKER TO TRANSFER FROM BS TO W/C. PT DIDN'T WANT TO EAT ANY DINNER. PT WANTED TO GO BACK TO BED. PT STATED HE FELT NAUSEATED, CHECKED RESIDUAL OF TF, NO RESIDUAL NOTED. RATE AT THIS TIME IS 50ML/HR, PT IS TOLERATING FEEDING CONT.
[2021-04-01 19:50] VITALS: BP 151/91
--- NOTE | 2021-04-02 01:52 | NUR ---
PATIENT INCONTINENT OF BOWEL AND BLADDER AT 0030, APPARENTLY UNAWARE. NO RESIDUAL, SO TF INCREASED TO 55 AFTER BEING CLEANED UP. TYLENOL TAKEN PO, PATIENT STATES NO REAL PAIN AT REST, BUT SHOULDERS ACHE IF THEY ARE NOT PROPPED UP ON PILLOWS. DAUGHTER ASHLEY IS INTERESTED IN ALL ASPECTS OF CARE
[2021-04-02 07:15] VITALS: BP 177/79
--- NOTE | 2021-04-02 10:57 | NUR ---
ASSUMED CARE AT 0700. PATIENT IS ALERT AND ORIENTED X1-2. PATIENT LEES'S, TRACER CLERK ARE EQUAL. LUNGS ARE CLEAR AND DEMINISHED. ABD IS SOFT WITH BSX4. PATIENT HAS PEG TUBE WITH NEPRO INFUSING AT 60CC/HR CONTINUEOUSLY. NO RESIDUAL NOTED. PATIENT DOES GET UP TO BSC, BUT IS ALSO INCONTINENT OF URINE. PATIENT BURN WOUNDS CHANGED ACCORDING TO PROTOCOLS. DAUGHTER AT BEDSIDE. PATIENT TURNED Q 2 HOURS. Z GUARD APPLIED TO HIS BOTTOM. WILL CONTINUES TO MONITER.
--- NOTE | 2021-04-02 14:53 | NUR ---
AMINATA received a call from [facility] and was informed that pt hospital bed would take 8-10 days for delivery. AMINATA faxed addtional referral to [facility] fax [phone] and will await a callback for delivery time. AMINATA asked [facility] to keep referral open unless we can find another company that can deliver sooner. W/U in progress.
--- NOTE | 2021-04-02 15:57 | NUR ---
AMINATA faxed additonal referral to [facility] updated fax [phone]
[2021-04-02 20:00] VITALS: BP 163/93
--- NOTE | 2021-04-03 06:35 | NUR ---
ASSUMED CARE AT 1900 OF 04/02. PATIENT IS A&OX1-2. DENIES PAIN OR SOB. MODERATE ASSIST OF 1 WITH TRANSFER TO [facility], USING GB AND WALKER. ABD IS SOFT, NON-DISTENDED AND SOUNDS PRESENT IN ALL 4 QUADRANTS. PEG TUBE IN PLACE, DRESSING IS CDI. 250CC OF WATER FLUSHED PERFORMED AT 0000 AND 0600. CONTINUOUS FEEDING NEPRO RUNNING AT 60CC/HR, GASTRIC RESIDUAL VOLUME AT 2200 WAS 30CC, AND NO RESIDUAL NOTED AT 0600 THIS MORNING. PATIENT DENIES NAUSEA OR ABDOMINAL DISCOMFORT. ALL MEDICATIONS TOLERATED ORALLY. PATIENT WAS INCONTINENT OF BOWEL AND BLADDER DURING SHIFT. PRAFO BOOTS ON WHILE IN BED. WILL CONTINUE TO MONITOR.
[2021-04-03 07:24] VITALS: BP 183/81
[2021-04-03 07:34] VITALS: BP 183/81
--- NOTE | 2021-04-03 09:21 | NUR ---
[facility] to provided hospital bed for dc today. Jass spoke with daughter Ijeoma via phone call and understands we still working on setting up dme in the home. Will cont following as needed for dc needs. today. He will need stretcher transportation home.
[2021-04-03] MEDS ORDERED: TRAZODONE HCL100 MG PO (09:40)
[2021-04-03] MEDS ORDERED: TOPROL XL25 MG PO (09:40)
[2021-04-03] MEDS ORDERED: LIDOPATCH1 EACH TRANSDERM (09:40)
[2021-04-03] MEDS ORDERED: LIPITOR40 MG PO (09:40)
[2021-04-03] MEDS ORDERED: REMERON 30 MG T30 M1 PO (09:40)
[2021-04-03] MEDS ORDERED: CLOPIDOGREL75 MG PO (09:40)
[2021-04-03] MEDS ORDERED: SODIUM BICARBO650 M3 PO (09:40)
[2021-04-03] MEDS ORDERED: KONSYL6 GM PO (09:40)
--- NOTE | 2021-04-03 10:24 | NUR ---
Pt will be discharged today and will go home with bolus tube feedings. Pt refuses po intake, so TF will need to meet 100% nutrition needs. Prefer to keep pt on Nepro formula which is more concentrated, so less cans per day needed than the jevity 1.5 (4 vs 6). Nursing will be teaching family today bolus administration. Nepro 1 can 4x day with 240ml water flush every 6hr and additional water as needed for flushes after medication administration. Addendum: add 1 packet beneprotein in each water flush.
[2021-04-03] MEDS ORDERED: FIBERCON CHEWA625 MG PO (10:41)
[2021-04-03] MEDS ORDERED: SSD CREAM 1% 5050 GM TOP (12:27)
[2021-04-03 12:28] VITALS: BP 183/81
--- NOTE | 2021-04-03 12:52 | NUR ---
ASSUMED CARE AT 0700. PATIENT IS ALERT AND ORIENTED X1. PATIENT LEES'S, CUTTER BRAKE LINING ARE EQUAL. LUNGS ARE CLEAR AND DEMINISHED. ABD IS SOFT WITH BSX4. INCONTINENT OF URINE. UP TO THE BSC TO HAVE BM. FALL AND SAFETY PROTOCOLS IN PLACE. DRESSING CHANGED PER PROTOCOL TO LEFT UPPER ARM. LEFT ABD, LEFT GROIN AREA, RIGHT HIP, AND RIGHT THIGH. PATIENT CARE GIVEN TO PATIENTS RIGHT FOOT/BIG TOE AND LATERAL ASPECT OF HIS RIGHT FOOT. C/O BACK PAIN. MEDICATED WITH PRN PAIN MED AND LIDOCAINE PATCH. CONTINUES TO PROGRESS TOWARDS D/C GOALS. WILL CONTINUE TO MONITER.
--- NOTE | 2021-04-03 12:57 | NUR ---
PATIENTS DAUGHTER INSTRUCTED ON CARE OF PATIENTS WOUND TO HIS LEFT UPPER ARM, LEFT ABD, LEFT THIGH, PATIENTS DAUGHTER CHANGED DRESSING THIS A.M. PATIENT DAUGHTER INSTRUCTED ON CHECKING RESIDUAL AND PARAMETERS WHEN TO HOLD T.F.'S DAUGHTER STATED, PATIENTS REFUSED LUNCH. PATIENT RESIDUAL CHECKED BY DAUGHTER. T.F. GIVEN INSTRUCTED. PEG TUBE FLUSHED WITH 120 CC OF FREE H20 AFTER THE T.F. WAS ADMINISTERED.PATIENT TOLERATED PROEDURE WTIHOUT PROBLEMS. HOB UP 40 DEGREES. PATIENTS DAUGHTER FEEL COMFORTABLE WITH PROCEDURE. PLAN D/C TO HOME AFTER 3:30 P.M. PATIENT IS RESTING COMFORTABLE IN BED. WILL CONTINUE TO MONITER.
--- NOTE | 2021-04-03 15:47 | NUR ---
1530 PATIENT D/C'D TO HOME PER MEDICAL TRANSPORTATION VIA STRETCHER.
--- NOTE | 2021-04-03 19:18 | NUR ---
SHEET METAL FORMER AT [facility] SET UP HOSPITAL BED, W/C , WALKER, AND BSC. FOR HOME USE. DAUGHTER, ALDA RECIEVED FAMILY TRAINING FOR WOUND CARE, AND BOLUS FEEDINGS WITH NEPRO, HOW TO CHECK FOR RESIDUAL, AND HOW TO GIVE H20 BOLUSES. DAUGHTER WAS ABLE TO DO RETURN DEMO OF ALL THE ABOVE CARE. PATIENT LEFT UNIT IN GOOD CONDITION PER STRETCHER.
== END 2021-04-03 15:49 | disposition home health service (06) | DRG 91 ==
LOC: 2N 20:25
PROVIDERS: Hospitalist; Internal Medicine; Internal Medicine Nephrology; Nurse Practitioner; Nurse Practitioner Family; ADMIT Physical Medicine & Rehabilitation; ATTEND Physical Medicine & Rehabilitation
PROC: 0DH63UZ Insertion of Feeding Device into Stomach, Percutaneous Approach (ICD-10-PCS; principal; 2021-03-26)
DX: G92 Toxic encephalopathy (principal); L89.103 Pressure ulcer of unspecified part of back, stage 3; L89.213 Pressure ulcer of right hip, stage 3; L89.893 Pressure ulcer of other site, stage 3; N17.0 Acute kidney failure with tubular necrosis; A41.81 Sepsis due to Enterococcus; R65.20 Severe sepsis without septic shock; I21.4 Non-ST elevation (NSTEMI) myocardial infarction; E43 Unspecified severe protein-calorie malnutrition; E87.0 Hyperosmolality and hypernatremia; E87.2 Acidosis; M62.82 Rhabdomyolysis; R57.9 Shock, unspecified; B37.49 Other urogenital candidiasis; R53.81 Other malaise; F03.90 Unspecified dementia, unspecified severity, without behavioral disturbance, psychotic disturbance, mood disturbance, and anxiety; E78.5 Hyperlipidemia, unspecified; I25.10 Atherosclerotic heart disease of native coronary artery without angina pectoris; E86.0 Dehydration; E78.00 Pure hypercholesterolemia, unspecified; I12.9 Hypertensive chronic kidney disease with stage 1 through stage 4 chronic kidney disease, or unspecified chronic kidney disease; E87.5 Hyperkalemia; R41.0 Disorientation, unspecified; F43.21 Adjustment disorder with depressed mood; N18.30 Chronic kidney disease, stage 3 unspecified; E87.8 Other disorders of electrolyte and fluid balance, not elsewhere classified; R74.01 Elevation of levels of liver transaminase levels; L55.9 Sunburn, unspecified; E03.9 Hypothyroidism, unspecified; L89.892 Pressure ulcer of other site, stage 2; L89.152 Pressure ulcer of sacral region, stage 2; L89.322 Pressure ulcer of left buttock, stage 2; L89.312 Pressure ulcer of right buttock, stage 2; S00.03XA Contusion of scalp, initial encounter; X58.XXXA Exposure to other specified factors, initial encounter; E55.9 Vitamin D deficiency, unspecified; B96.5 Pseudomonas (aeruginosa) (mallei) (pseudomallei) as the cause of diseases classified elsewhere; R62.7 Adult failure to thrive; I80.8 Phlebitis and thrombophlebitis of other sites; K76.89 Other specified diseases of liver; F41.9 Anxiety disorder, unspecified; F32.9 Major depressive disorder, single episode, unspecified; K22.70 Barrett's esophagus without dysplasia; K44.9 Diaphragmatic hernia without obstruction or gangrene; Z91.013 Allergy to seafood; Z91.018 Allergy to other foods; Z79.899 Other long term (current) drug therapy; Z68.28 Body mass index [BMI] 28.0-28.9, adult; Z60.2 Problems related to living alone; I25.2 Old myocardial infarction; Z87.891 Personal history of nicotine dependence; Y93.89 Activity, other specified; Y92.89 Other specified places as the place of occurrence of the external cause; Y99.8 Other external cause status
CPT/HCPCS: 10112; 62110; 62900; 70005

== ENCOUNTER → 2021-07-08 | Outpatient (CLI) | payer OTHER ==
[~2021-07-08] MED LIST changes: +ACETAMINOPHEN325 M1 PO; +FIBERCON CHEWA625 MG PO; +HYDRALAZINE 2525 MG PO; +KONSYL6 GM PO; +LIDOPATCH1 EACH TRANSDERM; +PROTONIX 20 MG20 M1 PO; +REMERON 30 MG T30 M1 PO; +SODIUM BICARBO650 M3 PO; +SSD CREAM 1% 5050 GM TOP; +TOPROL XL25 MG PO; +TRAZODONE HCL100 MG PO; +VANCOMYCIN HCL250 MG PO
== END | disposition home or self-care (01) ==
LOC: GI 09:43
PROVIDERS: ATTEND Internal Medicine Gastroenterology
DX: Z43.1 Encounter for attention to gastrostomy (principal); I12.9 Hypertensive chronic kidney disease with stage 1 through stage 4 chronic kidney disease, or unspecified chronic kidney disease; N18.4 Chronic kidney disease, stage 4 (severe); I25.2 Old myocardial infarction; Z98.890 Other specified postprocedural states; Z79.899 Other long term (current) drug therapy; Z20.822 Contact with and (suspected) exposure to COVID-19